=== PATIENT | female | born 1975 | race Caucasian/White ===

== ENCOUNTER 2018-04-06 08:09 | Emergency (ER) | payer BC ==
[2018-04-06 08:24] VITALS: TEMP 98
[2018-04-06] MEDS ORDERED: SODIUM CHLORIDE 0.9% 1,000 ML IV STA (08:51)
--- NOTE | 2018-04-06 09:07 | ED ---
General Adult HPI - General Chief complaint: Neuro Symptoms/Deficit Stated complaint: FACE AND RT ARM NUMBNESS Time Seen by Provider: 04/06/18 08:42 Source: patient, RN notes reviewed Mode of arrival: ambulatory Limitations: no limitations - History of Present Illness Initial comments: Patient's a 42-year-old female presenting to the emergency room today with a chief complaint of numbness to the right upper extremity right side of her face. Patient states that she woke up around 2 AM with a pins and needle type sensation in the right arm. She states it was painful. She states it lasted approximately an hour and then went away. She states she was able to go back to sleep. She states she woke up she felt fine. She went to work approximately one hour prior to arrival began feeling this numbness sensation back of the right upper extremity of the right side of her face. She states it' s not as tetanus was in the morning. She states she can feel but it is more of a packaging sales sensation when compared bilaterally. She denies any history of any neck problems. Denies ever having similar symptoms in the past. Denies any other complaints. Patient denies any recent fever, chills, shortness of breath, chest pain, back pain, abdominal pain, nausea or vomiting, headaches or visual changes, or any other complaints. - Related Data Allergies Allergy/AdvReac Type Severity Reaction Status Date / Time morphine AdvReac Nausea & Verified 04/06/18 08:24 Vomiting Review of Systems ROS Statement: Those systems with pertinent positive or pertinent negative responses have been documented in the HPI. ROS Other: All systems not noted in ROS Statement are negative. Past Medical History Past Medical History: No Reported History History of Any Multi-Drug Resistant Organisms: None Reported Past Surgical History: Ablation, Appendectomy, Tubal Ligation Additional Past Surgical History / Comment(s): uterine ablasion Past Psychological History: No Psychological Hx Reported Smoking Status: Current some day smoker Past Alcohol Use History: Rare Past Drug Use History: None Reported General Exam - General Exam Comments Initial Comments: General: The patient is awake and alert, in no distress, and does not appear acutely ill. Eye: Pupils are equal, round and reactive to light, extra-ocular movements are intact. No nystagmus. There is normal conjunctiva bilaterally. No signs of icterus. Ears, nose, mouth and throat: There are moist mucous membranes and no oral lesions. Neck: The neck is supple, there is no tenderness or JVD. Cardiovascular: There is a regular rate and rhythm. No murmur, rub or gallop is appreciated. Respiratory: Lungs are clear to auscultation, respirations are non-labored, breath sounds are equal. No wheezes, stridor, rales, or rhonchi. Musculoskeletal: Normal ROM, no tenderness. Strength 5/5. Sensation is intact bilaterally but patient feels packaging sales sensation on the right upper extremity when compared to the left. Pulses equal bilaterally 2+. Neurological: A&O x 3. CN II-XII intact, There are no obvious motor or sensory deficits. Coordination appears grossly intact. Speech is normal. Skin: Skin is warm and dry and no rashes or lesions are noted. Psychiatric: Cooperative, appropriate mood & affect, normal judgment. Limitations: no limitations Course Vital Signs 04/06/18 04/06/18 04/06/18 08:21 09:00 09:30 Temperature 98 F Pulse Rate 65 64 57 L Respiratory 18 12 12 Rate Blood Pressure 122/59 108/53 98/63 O2 Sat by Pulse 100 98 98 Oximetry 04/06/18 10:00 Temperature Pulse Rate 59 L Respiratory 10 L Rate Blood Pressure 109/64 O2 Sat by Pulse 98 Oximetry Medical Decision Making - Medical Decision Making Case discussed in detail with attending physician Dr. Burgos. Patient reexamined at this time shows no signs of distress. She is resting comfortably. Does admit to improvement of symptoms here. States anytime she feels like her face is swollen. She states there is no active swelling. Does have mild paresthesia to the right side but sensation to light touch is intact. Patient CT of the head and neck with/without contrast was reviewed showing no acute abnormalities. Patient's labs reviewed. Was discussed with patient about close follow-up for Neuro consult. Patient states she will follow-up with her family doctor. Advised return to emergency room symptoms increase or worsen. - Lab Data Result diagrams: 04/06/18 08:39 04/06/18 08:39 Lab Results 04/06/18 04/06/18 04/06/18 Range/Units 08:39 08:39 08:39 WBC 5.3 (3.8-10.6) k/uL RBC 3.74 L (3.80-5.40) m/uL Hgb 11.7 (11.4-16.0) gm/dL Hct 35.7 (34.0-46.0) % MCV 95.4 (80.0-100.0) fL MCH 31.3 (25.0-35.0) pg MCHC 32.8 (31.0-37.0) g/dL RDW 12.3 (11.5-15.5) % Plt Count 289 (150-450) k/uL Neutrophils % 48 % Lymphocytes % 32 % Monocytes % 7 % Eosinophils % 9 % Basophils % 1 % Neutrophils # 2.6 (1.3-7.7) k/uL Lymphocytes # 1.7 (1.0-4.8) k/uL Monocytes # 0.4 (0-1.0) k/uL Eosinophils # 0.5 (0-0.7) k/uL Basophils # 0.0 (0-0.2) k/uL PT (9.0-12.0) sec INR (<1.2) APTT (22.0-30.0) sec Sodium 139 (137-145) mmol/L Potassium 4.8 (3.5-5.1) mmol/L Chloride 108 H (98-107) mmol/L Carbon Dioxide 22 (22-30) mmol/L Anion Gap 9 mmol/L BUN 17 (7-17) mg/dL Creatinine 0.88 (0.52-1.04) mg/dL Est GFR (CKD-EPI)AfAm >90 (>60 ml/min/1.73 sqM) Est GFR (CKD-EPI)NonAf 82 (>60 ml/min/1.73 sqM) Glucose 69 L (74-99) mg/dL Calcium 9.4 (8.4-10.2) mg/dL Total Bilirubin 0.3 (0.2-1.3) mg/dL AST 36 (14-36) U/L ALT 20 (9-52) U/L Alkaline Phosphatase 54 (38-126) U/L Total Creatine Kinase 145 H (30-135) U/L CK-MB (CK-2) 1.2 (0.0-2.4) ng/mL CK-MB (CK-2) Rel Index 0.8 Troponin I <0.012 (0.000-0.034) ng/mL Total Protein 7.0 (6.3-8.2) g/dL Albumin 4.4 (3.5-5.0) g/dL 04/06/18 Range/Units 08:39 WBC (3.8-10.6) k/uL RBC (3.80-5.40) m/uL Hgb (11.4-16.0) gm/dL Hct (34.0-46.0) % MCV (80.0-100.0) fL MCH (25.0-35.0) pg MCHC (31.0-37.0) g/dL RDW (11.5-15.5) % Plt Count (150-450) k/uL Neutrophils % % Lymphocytes % % Monocytes % % Eosinophils % % Basophils % % Neutrophils # (1.3-7.7) k/uL Lymphocytes # (1.0-4.8) k/uL Monocytes # (0-1.0) k/uL Eosinophils # (0-0.7) k/uL Basophils # (0-0.2) k/uL PT 9.9 (9.0-12.0) sec INR 0.9 (<1.2) APTT 27.7 (22.0-30.0) sec Sodium (137-145) mmol/L Potassium (3.5-5.1) mmol/L Chloride (98-107) mmol/L Carbon Dioxide (22-30) mmol/L Anion Gap mmol/L BUN (7-17) mg/dL Creatinine (0.52-1.04) mg/dL Est GFR (CKD-EPI)AfAm (>60 ml/min/1.73 sqM) Est GFR (CKD-EPI)NonAf (>60 ml/min/1.73 sqM) Glucose (74-99) mg/dL Calcium (8.4-10.2) mg/dL Total Bilirubin (0.2-1.3) mg/dL AST (14-36) U/L ALT (9-52) U/L Alkaline Phosphatase (38-126) U/L Total Creatine Kinase (30-135) U/L CK-MB (CK-2) (0.0-2.4) ng/mL CK-MB (CK-2) Rel Index Troponin I (0.000-0.034) ng/mL Total Protein (6.3-8.2) g/dL Albumin (3.5-5.0) g/dL Disposition Clinical Impression: Paresthesia Disposition: HOME SELF-CARE Condition: Good Instructions (If sedation given, give patient instructions): Paresthesia (ED) Additional Instructions: Please follow-up with family doctor in the next 1-2 days. Please return to emergency room if the symptoms increase or worsen or for any other concerns. Is patient prescribed a controlled substance at d/c from ED?: No Referrals: Arnie Christie MD [Primary Care Provider] - 1-2 days Time of Disposition: 10:36
[2018-04-06 09:23] LABS: INR 0.9 (<1.2); Partial Thromboplastin Time 27.7 sec (22.0-30.0); Prothrombin Time 9.9 sec (9.0-12.0)
[2018-04-06 09:27] LABS: Basophils % (A) 1 %; Eosinophils # (A) 0.5 k/uL (0-0.7); Eosinophils % (A) 9 %; HCT 35.7 % (34.0-46.0); HGB 11.7 gm/dL (11.4-16.0); Lymphocytes # (A) 1.7 k/uL (1.0-4.8); Lymphocytes % (A) 32 %; MCH 31.3 pg (25.0-35.0); MCHC 32.8 g/dL (31.0-37.0); MCV 95.4 fL (80.0-100.0); Mean Platelet Volume 6.5; Monocytes # (A) 0.4 k/uL (0-1.0); Monocytes % (A) 7 %; Neutrophils # (A) 2.6 k/uL (1.3-7.7); Neutrophils % (A) 48 %; Platelet Count 289 k/uL (150-450); RBC 3.74 m/uL (3.80-5.40); RDW 12.3 % (11.5-15.5); WBC 5.3 k/uL (3.8-10.6)
[2018-04-06 09:37] LABS: ALT 20 U/L (9-52); AST 36 U/L (14-36); Albumin 4.4 g/dL (3.5-5.0); Alkaline Phosphatase 54 U/L (38-126); Anion Gap 9 mmol/L; Blood Urea Nitrogen 17 mg/dL (7-17); Calcium 9.4 mg/dL (8.4-10.2); Carbon Dioxide 22 mmol/L (22-30); Chloride 108 mmol/L (98-107); Glucose 69 mg/dL (74-99); Potassium 4.8 mmol/L (3.5-5.1); Sodium 139 mmol/L (137-145); Total Bilirubin 0.3 mg/dL (0.2-1.3)
[2018-04-06 09:45] LABS: Creatine Kinase 145 U/L (30-135)
--- NOTE | 2018-04-06 09:47 | CT ---
EXAMINATION TYPE: CT brain wo con DATE OF EXAM: 04/06/2018 COMPARISON: HISTORY: right arm and facial numbness CT DLP: [address] of the brain was performed. The ventricles, basal cisterns and sulci overlying the cerebral convexities demonstrate a normal appe arance. There is no evidence for intracranial hemorrhage or sulcal effacement. No mass effects are seen. Osseous calvarium is intact. Chronic pansinusitis. If symptoms persist consider MRI as clinically warranted. IMPRESSION: 1. No acute intracranial process is seen at this time.
[2018-04-06 09:57] LABS: Creatine Kinase MB 1.2 ng/mL (0.0-2.4); Troponin I <0.012 ng/mL (0.000-0.034)
--- NOTE | 2018-04-06 09:57 | CT ---
EXAMINATION TYPE: CT angio head neck DATE OF EXAM: 04/06/2018 COMPARISON: None HISTORY: right arm and facial numbness CT DLP: 378.1 mGycm CONTRAST: Performed with IV Contrast, patient injected with 100 mL of Isovue 370. Combination Contrast CTA cervical carotids and [place] CTA cervical carotids with 3-D recons truction Contrast CTA of the cervical carotids was performed 3-D reconstruction imaging obtained at a separate workstation. Right carotid system: No plaque is seen of the right common carotid artery. There is no significant plaque also noted at the carotid bulb and proximal ICA. No significant diameter reduction. ECA is p atent. Right vertebral artery appears unremarkable. Left carotid system: No plaque is seen of the left common carotid artery. There is no significant pl aque also noted at the carotid bulb and proximal ICA. No significant diameter reduction. ECA is pat ent. Left vertebral artery appears unremarkable. IMPRESSION: 1. No significant diameter reduction to account for the patient's symptoms. CTA [place] with 3-D reconstruction Contrast CTA of the [place] was performed 3-D reconstruction imaging obtained at a separate workstation. Vertebrobasilar system as well as intracranial portions of the internal carotid arteries and their ma rajendra tributaries are patent. I do not see evidence for sizable aneurysm or vascular malformation. Pl ease note MRI provides greater sensitivity and specificity. Visualized brain appears grossly unremar kable. IMPRESSION: 1. No significant abnormality.
[2018-04-06 10:38] VITALS: BP 106/45; PULSE 56; RESP 9
== END 2018-04-06 10:48 | disposition home or self-care (01) ==
LOC: EC 08:09
DX: R20.2 Paresthesia of skin (principal); F17.200 Nicotine dependence, unspecified, uncomplicated; Z88.5 Allergy status to narcotic agent
CPT/HCPCS: 36415; 93005; 80053; 82550; 82553; 84484; 85025; 85610; 85730; 70496; 70450; 70498; 99284; 96360; 96361; Q9967

== ENCOUNTER → 2020-01-12 | Outpatient (CLI) | payer BC ==
[2020-01-12 14:23] LABS: T4, Free (Free Thyroxine) 1.7 ng/dL (0.80-1.80)
== END | disposition home or self-care (01) ==
LOC: LABWHC1 07:21
PROVIDERS: ATTEND Internal Medicine Endocrinology, Diabetes & Metabolism
DX: E05.00 Thyrotoxicosis with diffuse goiter without thyrotoxic crisis or storm (principal)
CPT/HCPCS: 36415; 84439; 84443; 84445; 84480

== ENCOUNTER 2023-06-29 11:32 | Observation (INO) | payer BC, MEDICARE, OTHER ==
--- NOTE | 2023-06-29 12:23 | ED ---
Abdominal Pain HPI - General Chief Complaint: Abdominal Pain Stated Complaint: abd pain Time Seen by Provider: 06/29/23 11:45 Source: patient, family Mode of arrival: ambulatory Limitations: no limitations - History of Present Illness Initial Comments: 47-year-old female presents reporting to left lower quadrant abdominal pain. States that the pain has been going on since Thursday. States it is sharp in nature and radiates around to her left flank. Pain is intermittent. Denies any provocative factors. No changes in her bowel or bladder habits. Patient does not have menstrual cycle since she had a uterine ablation. No vaginal bleeding or discharge. No concern for sexually transmitted infections. She denies any fevers. Admits nausea without vomiting. No history of similar pain in the past. No other alleviating, precipitating or modifying factors - Related Data Previous Rx's Medication Instructions Recorded Acetaminophen Tab [Tylenol] 650 mg PO Q6H PRN #30 tab 06/29/23 Ibuprofen [Motrin] 600 mg PO Q6HR PRN #30 tab 06/29/23 oxyCODONE HCL [Roxicodone] 5 mg PO Q6HR PRN 3 Days #12 tab 06/29/23 Allergies Allergy/AdvReac Type Severity Reaction Status Date / Time morphine AdvReac Nausea & Verified 06/29/23 15:54 Vomiting Review of Systems ROS Statement: Those systems with pertinent positive or pertinent negative responses have been documented in the HPI. ROS Other: All systems not noted in ROS Statement are negative. Past Medical History Past Medical History: No Reported History History of Any Multi-Drug Resistant Organisms: None Reported Past Surgical History: Ablation, Appendectomy, Tubal Ligation Additional Past Surgical History / Comment(s): uterine ablasion, liposuction. Past Psychological History: No Psychological Hx Reported Smoking Status: Never smoker Past Alcohol Use History: Occasional Past Drug Use History: None Reported General Exam Limitations: no limitations General appearance: alert, in no apparent distress Head exam: Present: atraumatic, normocephalic, normal inspection Eye exam: Present: normal appearance, PERRL, EOMI. Absent: scleral icterus, conjunctival injection, periorbital swelling ENT exam: Present: normal exam, mucous membranes moist Neck exam: Present: normal inspection. Absent: tenderness, meningismus, lymphadenopathy Respiratory exam: Present: normal lung sounds bilaterally. Absent: respiratory distress, wheezes, rales, rhonchi, stridor Cardiovascular Exam: Present: regular rate, normal rhythm, normal heart sounds. Absent: systolic murmur, diastolic murmur, rubs, gallop, clicks GI/Abdominal exam: Present: soft, tenderness (Left lower quadrant pelvic pain), normal bowel sounds. Absent: distended, guarding, rebound, rigid Extremities exam: Present: normal inspection, full ROM, normal capillary refill. Absent: tenderness, pedal edema, joint swelling, calf tenderness Back exam: Present: normal inspection Neurological exam: Present: alert, oriented X3, CN II-XII intact Psychiatric exam: Present: normal affect, normal mood Skin exam: Present: warm, dry, intact, normal color. Absent: rash Course Vital Signs 06/29/23 06/29/23 06/29/23 11:33 15:09 18:25 Temperature 97.6 F Pulse Rate 62 61 65 Respiratory 18 16 16 Rate Blood Pressure 113/76 114/61 109/63 O2 Sat by Pulse 99 100 99 Oximetry Medical Decision Making - Medical Decision Making Was pt. sent in by a medical professional or institution (, PA, SHELLFISH BED WORKER, urgent care, hospital, or long term...) When possible be specific @ -No Did you speak to anyone other than the patient for history (EMS, parent, family, police, friend...)? What history was obtained from this source @ -No Did you review nursing and triage notes (agree or disagree)? Why? @ -I reviewed and agree with nursing and triage notes Were old charts reviewed (outside hosp., previous admission, EMS record, old EKG, old radiological studies, urgent care reports/EKG's, long term records)? Report findings @ -No old charts were reviewed Differential Diagnosis (chest pain, altered mental status, abdominal pain women, abdominal pain men, vaginal bleeding, weakness, fever, dyspnea, syncope, headache, dizziness, GI bleed, back pain, seizure, CVA, palpatations, mental health, musculoskeletal)? @ -Differential Abdominal Pain Women: Appendicitis, Cholecystitis, diverticulosis, ischemic bowel, pancreatitis, hepatitis, UTI, gastroenteritis, AAA, incarcerated hernia, bowel obstruction, constipation, inflammatory bowel, hepatitis, peptic ulcer disease, splenic infarction, perforated viscus, vulvitis, ovarian torsion, PID, kidney stone, placenta abruption, this is not meant to be an all-inclusive list EKG interpreted by me (3pts min.). @ -Yes and demonstrates sinus rhythm with a rate of 60. Parable 132. QRS 96. QTc of [address] segment elevations or depressions X-rays interpreted by me (1pt min.). @ -None done CT interpreted by me (1pt min.). @ -yes and demonstrates congestion of the left adnexa U/S interpreted by me (1pt. min.). @ -Left adnexa cannot be visualized What testing was considered but not performed or refused? (CT, X-rays, U/S, labs)? Why? @ -None What meds were considered but not given or refused? Why? @ -None Did you discuss the management of the patient with other professionals (professionals i.e. , PA, SHELLFISH BED WORKER, lab, RT, psych nurse, forensic social worker, ironer or presser, teacher, corporation officer, caseworker)? Give summary @ -Discussed the case with Dr. Henriquez who will evaluate the patient. Was smoking cessation discussed for >3mins.? @ -No Was critical care preformed (if so, how long)? @ -No Were there social determinants of health that impacted care today? How? (Homelessness, low income, unemployed, alcoholism, drug addiction, transportation, low edu. Level, literacy, decrease access to med. care, custodial, rehab)? @ -No Was there de-escalation of care discussed even if they declined (Discuss DNR or withdrawal of care, Hospice)? DNR status @ -No What co-morbidities impacted this encounter? (DM, HTN, Smoking, COPD, CAD, Cancer, CVA, ARF, Chemo, Hep., AIDS, mental health diagnosis, sleep apnea, m orbid obesity)? @ -None Was patient admitted / discharged? Hospital course, mention meds given and route, prescriptions, significant lab abnormalities, going to OR and other pertinent info. @ -Upon arrival patient was seen and evaluated in room 13. Thorough history and physical exam was performed. IV access was established. Patient was originally offered some pain medications and she refused. She was then agreeable to Toradol. CT was performed which demonstrates pelvic congestion. This is followed by an ultrasound which cannot visualize the left adnexa. As patient is reporting to left lower quadrant pain I cannot rule out torsion. I discussed this with Dr. Henriquez who states that she can obs the patient or take her for ex lap. Patient is agreeable to ex lap. She will be admitted to Dr. Henriquez Undiagnosed new problem with uncertain prognosis? @ -Yes Drug Therapy requiring intensive monitoring for toxicity (Heparin, Nitro, Insulin, Cardizem)? @ -No Were any procedures done? @ -No Diagnosis/symptom? @ -Acute left lower quadrant pelvic pain, possible torsion Acute, or Chronic, or Acute on Chronic? @ -Acute Uncomplicated (without systemic symptoms) or Complicated (systemic symptoms)? @ -Complicated Side effects of treatment? @ -No Exacerbation, Progression, or Severe Exacerbation? @ -No Poses a threat to life or bodily function? How? (Chest pain, [place], [place], pneumonia, PE, COPD, DKA, ARF, appy, cholecystitis, CVA, Diverticulitis, Homicidal, Suicidal, threat to staff... and all critical care pts) @ -Yes as patient has possible torsion - Lab Data Result diagrams: 06/29/23 12:20 06/29/23 12:20 Lab Results 06/29/23 06/29/23 06/29/23 Range/Units 12:20 12:20 12:20 WBC 3.6 L (3.8-10.6) k/uL RBC 3.46 L (3.80-5.40) m/uL Hgb 11.9 (11.4-16.0) gm/dL Hct 34.0 (34.0-46.0) % MCV 98.3 (80.0-100.0) fL MCH 34.4 (25.0-35.0) pg MCHC 35.0 (31.0-37.0) g/dL RDW 12.3 (11.5-15.5) % Plt Count 187 (150-450) k/uL MPV 8.5 Neutrophils % 44 % Lymphocytes % 36 % Monocytes % 10 % Eosinophils % 7 % Basophils % 1 % Neutrophils # 1.6 (1.3-7.7) k/uL Lymphocytes # 1.3 (1.0-4.8) k/uL Monocytes # 0.4 (0-1.0) k/uL Eosinophils # 0.2 (0-0.7) k/uL Basophils # 0.0 (0-0.2) k/uL Sodium 138 (137-145) mmol/L Potassium 4.1 (3.5-5.1) mmol/L Chloride 108 H (98-107) mmol/L Carbon Dioxide 27 (22-30) mmol/L Anion Gap 3 mmol/L BUN 9 (7-17) mg/dL Creatinine 0.68 (0.52-1.04) mg/dL Est GFR (CKD-EPI)AfAm >90 (>60 ml/min/1.73 sqM) Est GFR (CKD-EPI)NonAf >90 (>60 ml/min/1.73 sqM) Glucose 85 (74-99) mg/dL Calcium 8.8 (8.4-10.2) mg/dL Total Bilirubin 0.3 (0.2-1.3) mg/dL AST 26 (14-36) U/L ALT 14 (4-34) U/L Alkaline Phosphatase 45 (38-126) U/L Troponin I <0.012 (0.000-0.034) ng/mL Total Protein 6.1 L (6.3-8.2) g/dL Albumin 3.8 (3.5-5.0) g/dL Lipase 83 (23-300) U/L Urine Color Urine Appearance (Clear) Urine pH (5.0-8.0) Ur Specific [place] (1.001-1.035) Urine Protein (Negative) Urine Glucose (UA) (Negative) Urine Ketones (Negative) Urine Blood (Negative) Urine Nitrite (Negative) Urine Bilirubin (Negative) Urine Urobilinogen (<2.0) mg/dL Ur Leukocyte Esterase (Negative) Urine WBC (0-5) /hpf Ur Squamous Epith Cells (0-4) /hpf Urine Mucus (None) /hpf 06/29/23 Range/Units 12:27 WBC (3.8-10.6) k/uL RBC (3.80-5.40) m/uL Hgb (11.4-16.0) gm/dL Hct (34.0-46.0) % MCV (80.0-100.0) fL MCH (25.0-35.0) pg MCHC (31.0-37.0) g/dL RDW (11.5-15.5) % Plt Count (150-450) k/uL MPV Neutrophils % % Lymphocytes % % Monocytes % % Eosinophils % % Basophils % % Neutrophils # (1.3-7.7) k/uL Lymphocytes # (1.0-4.8) k/uL Monocytes # (0-1.0) k/uL Eosinophils # (0-0.7) k/uL Basophils # (0-0.2) k/uL Sodium (137-145) mmol/L Potassium (3.5-5.1) mmol/L Chloride (98-107) mmol/L Carbon Dioxide (22-30) mmol/L Anion Gap mmol/L BUN (7-17) mg/dL Creatinine (0.52-1.04) mg/dL Est GFR (CKD-EPI)AfAm (>60 ml/min/1.73 sqM) Est GFR (CKD-EPI)NonAf (>60 ml/min/1.73 sqM) Glucose (74-99) mg/dL Calcium (8.4-10.2) mg/dL Total Bilirubin (0.2-1.3) mg/dL AST (14-36) U/L ALT (4-34) U/L Alkaline Phosphatase (38-126) U/L Troponin I (0.000-0.034) ng/mL Total Protein (6.3-8.2) g/dL Albumin (3.5-5.0) g/dL Lipase (23-300) U/L Urine Color Light Yellow Urine Appearance Clear (Clear) Urine pH 6.0 (5.0-8.0) Ur Specific [place] 1.019 (1.001-1.035) Urine Protein Negative (Negative) Urine Glucose (UA) Negative (Negative) Urine Ketones Negative (Negative) Urine Blood Negative (Negative) Urine Nitrite Negative (Negative) Urine Bilirubin Negative (Negative) Urine Urobilinogen <2.0 (<2.0) mg/dL Ur Leukocyte Esterase Small H (Negative) Urine WBC 18 H (0-5) /hpf Ur Squamous Epith Cells 7 H (0-4) /hpf Urine Mucus Occasional H (None) /hpf Disposition Clinical Impression: Pelvic pain Disposition: ADMITTED IP TO THIS [facility] Condition: Stable Is patient prescribed a controlled substance at d/c from ED?: No Time of Disposition: 17:02 Decision to Admit Reason: Admit from EC Decision Date: 06/29/23 Decision Time: 17:03
[2023-06-29 12:35] LABS: Basophils % (A) 1 %; Eosinophils # (A) 0.2 k/uL (0-0.7); Eosinophils % (A) 7 %; HGB 11.9 gm/dL (11.4-16.0); Lymphocytes # (A) 1.3 k/uL (1.0-4.8); Lymphocytes % (A) 36 %; MCH 34.4 pg (25.0-35.0); MCV 98.3 fL (80.0-100.0); Mean Platelet Volume 8.5; Monocytes # (A) 0.4 k/uL (0-1.0); Monocytes % (A) 10 %; Neutrophils # (A) 1.6 k/uL (1.3-7.7); Neutrophils % (A) 44 %; Platelet Count 187 k/uL (150-450); RBC 3.46 m/uL (3.80-5.40); RDW 12.3 % (11.5-15.5); WBC 3.6 k/uL (3.8-10.6)
[2023-06-29 12:41] LABS: Appearance,Urine Clear (Clear); Bilirubin,Urine Negative (Negative); Blood,Urine Negative (Negative); Color,Urine Light Yellow; Glucose,Urine (UA) Negative (Negative); Ketones,Urine Negative (Negative); Leukocyte Esterase,Urine Small (Negative); Mucus,Urine Occasional /hpf; Nitrite,Urine Negative (Negative); Protein,Urine Negative (Negative); Specific Gravity,Urine 1.019 (1.001-1.035); Squamous Epithelial Cell,Urine 7 /hpf (0-4); Urobilinogen,Urine <2.0 mg/dL (<2.0); WBC,Urine 18 /hpf (0-5)
[2023-06-29 12:45] LABS: ALT 14 U/L (4-34); AST 26 U/L (14-36); African American GFR (CKD) >90 (>60 ml/min/1.73 sqM); Albumin 3.8 g/dL (3.5-5.0); Alkaline Phosphatase 45 U/L (38-126); Anion Gap 3 mmol/L; Blood Urea Nitrogen 9 mg/dL (7-17); Calcium 8.8 mg/dL (8.4-10.2); Carbon Dioxide 27 mmol/L (22-30); Chloride 108 mmol/L (98-107); Glucose 85 mg/dL (74-99); Lipase 83 U/L (23-300); Non-African American GFR(CKD) >90 (>60 ml/min/1.73 sqM); Potassium 4.1 mmol/L (3.5-5.1); Sodium 138 mmol/L (137-145); Total Bilirubin 0.3 mg/dL (0.2-1.3); Total Protein 6.1 g/dL (6.3-8.2)
--- NOTE | 2023-06-29 14:06 | CT ---
EXAMINATION TYPE: CT abdomen pelvis w con CT DLP: 683.4 mGycm, Automated exposure control for dose reduction was used. DATE OF EXAM: 06/29/2023 1:51 PM COMPARISON: None. CLINICAL INDICATION:Female, 47 years old with history of abd pain, left lower quadrant; Left sided to mid abdominal pain. TECHNIQUE: Axial CT abdomen pelvis w con;Sagittal and coronal reformats were created on a separate w orkstation. Contrast used:100ml mL of Isovue 300 with IV Contrast, (none if empty) Oral contrast used: without Oral Contrast (none if empty) FINDINGS: LOWER CHEST: Unremarkable ABDOMEN LIVER: Unremarkable GALLBLADDER AND BILE DUCTS: Unremarkable. PANCREAS: Unremarkable. SPLEEN: Unremarkable. ADRENAL GLANDS: Unremarkable. KIDNEYS AND URETERS: No evidence of hydronephrosis or renal calculus. The ureters are unremarkable. PELVIS BLADDER: Unremarkable REPRODUCTIVE: Hazy margins. Questionable left adnexal fluid or follicle. Pelvic ultrasound follow-up recommended. ABDOMEN & PELVIS STOMACH AND BOWEL: Normal caliber small bowel No evidence of bowel obstruction. PERITONEUM/RETROPERITONEUM: No evidence of pneumoperitoneum or free fluid. VASCULATURE: No evidence of aortic aneurysm. MUSCULOSKELETAL: No acute osseous abnormalities LYMPH NODES: No gross evidence for lymphadenopathy. SOFT TISSUE/ABDOMINAL WALL: Unremarkable IMPRESSION: 1. Hazy margins regarding reproductive organs. Questionable left adnexal fluid or follicle. Pelvic u ltrasound follow-up recommended. 2. Moderate fecal load throughout the colon.
[2023-06-29] MEDS: KETOROLAC 15 MG/ML 1 ML VIAL IVP STA (15:06)
[2023-06-29 15:12] VITALS: RESP 16
--- NOTE | 2023-06-29 16:37 | US ---
EXAMINATION TYPE: US transvag DATE OF EXAM: 06/29/2023 COMPARISON: NONE CLINICAL INDICATION: Female, 47 years old with history of left sided pelvic pain; left sided pelvic p ain x years, worse now TECHNIQUE: Transvaginal (TV). Transvaginal sonographic images were medically necessary to better as sess the following anatomy: Ovaries Date of LMP: 25 years ago Hx ablation EXAM MEASUREMENTS: Uterus: 8.0x5.0x3.3 cm Endometrial Stripe: 0.7 cm Right Ovary: 1.7x1.0x1.6 cm Left Ovary: obscured by bowel 1. Uterus: Anteverted several fibroids, largest measures 1.9x1.7x2.4cm at the left fundal region 2. Endometrium: wnl 3. Right Ovary: wnl 4. Left Ovary: Obscured by overlying bowel gas Spectral, color and waveform doppler imaging shows good arterial and venous flow within the right o vary; there is no evidence for ovarian torsion. 5. Bilateral Adnexa: Obscured by overlying bowel gas 6. Posterior cul-de-sac: wnl the left adnexa has several prominent vessels measuring up to 8mm ?pelvic congestion syndrome? exam limited by bowel IMPRESSION: 1. Heterogeneous uterus consistent with multiple fibroids the largest of which is 2.4 cm and the left fundus. 2. Limited evaluation of the left adnexa due to bowel gas. 3. Normal right ovary without ovarian mass or torsion. 4. No fluid within the cul-de-sac. 5. Normal endometrium
[2023-06-29] MEDS ORDERED: MORPHINE SULFATE 4 MG/ML SYRINGE IV PRN (17:03)
[2023-06-29] MEDS ORDERED: NALOXONE 0.4 MG/ML 1 ML VIAL IV PRN (17:03)
--- NOTE | 2023-06-29 17:59 | P.HPOB ---
History of Present Illness H&P Date: 06/29/23 Chief Complaint: Left lower quadrant pain Ms. Logan is a 47 year old who presents to the ER with a 4-day history of worsening, colicky left lower quadrant pain. The pain has been intermittent in nature, but has been more constant and worsening in severity today. Toradol in the ER did not touch the pain. She also had emesis and an episode of subjective fever last night. The patient has had a decreased appetite due to the pain. The patient denies diarrhea, constipation, hematuria, dysuria, and urinary frequency. The patient has never had pain like this before. Labwork in the ER was essentially unremarkable. Urinalysis was contaminated but not suspicious for cystitis or pyelonephritis. CT Abdomen showed "hazy" and illdefined gynecologic organs with possible left adnexal fluid or follice. Pelvic US was unable to visualize the left ovary or colorflow to the left ovary due to overlying bowel gas. There is increased vascularity in the left lower quadrant, possible pelvic congestion. All she has had to eat today were a few sour patch kids 2-3 hours ago. She has otherwise only had a few sips of water. Gynecologic history: The patient has an endometrial ablation 24 years ago and has not had a period since. She has a tubal ligation for contraception. She has a history of 3 full-term vaginal deliveries. Surgical history: appendectomy, abdominoplasty, tubal ligation, endometrial ablation Social history: Social drinking, otherwise negative Medications: None Allergies: Morphine (vomiting) Past Medical History Past Medical History: No Reported History History of Any Multi-Drug Resistant Organisms: None Reported Past Surgical History: Ablation, Appendectomy, Tubal Ligation Additional Past Surgical History / Comment(s): uterine ablasion, liposuction. Past Psychological History: No Psychological Hx Reported Smoking Status: Never smoker Past Alcohol Use History: Occasional Past Drug Use History: None Reported Medications and Allergies Home Medications Medication Instructions Recorded Confirmed Type No Known Home Medications 06/29/23 06/29/23 History Allergies Allergy/AdvReac Type Severity Reaction Status Date / Time morphine AdvReac Nausea & Verified 06/29/23 15:54 Vomiting Exam Vital Signs Temp Pulse Resp BP Pulse Ox 06/29/23 15:09 61 16 114/61 100 06/29/23 11:33 97.6 F 62 18 113/76 99 Intake and Output 06/29/23 06/29/23 06/29/23 06:59 14:59 22:59 Other: Weight 69.853 kg Focused physical exam is performed. This is a woman in mild distress, uncomfortable appearing. Breathing is non-labored. Abdomen is tender to pa lpation with guarding in the left lower quadrant. No rebound tenderness. Extremities are non-tender and non-edematous. Results Result Diagrams: 06/29/23 12:20 06/29/23 12:20 Abnormal Lab Results - Last 24 Hours (Table) 06/29/23 06/29/23 06/29/23 Range/Units 12:20 12:20 12:27 WBC 3.6 L (3.8-10.6) k/uL RBC 3.46 L (3.80-5.40) m/uL Chloride 108 H (98-107) mmol/L Total Protein 6.1 L (6.3-8.2) g/dL Ur Leukocyte Esterase Small H (Negative) Urine WBC 18 H (0-5) /hpf Ur Squamous Epith Cells 7 H (0-4) /hpf Urine Mucus Occasional H (None) /hpf Assessment and Plan Assessment: 47 year old with suspected left ovarian torsion Plan: Admit, NPO, plan for emergent diagnostic laparoscopy with possible left salpingo-ophorectomy. Risks, benefits, and alternatives to surgery were discussed with the patient including risk of bleeding, infection, and damage to surrounding structures. All questions answered. Time with Patient: Greater than 30 (35 minutes)
[2023-06-29] MEDS ORDERED: LIDOCAINE 1% (10MG/ML) FOR IV START INTRADERMA PRN (18:35)
[2023-06-29] MEDS ORDERED: GLYCOPYRROLATE 0.2 MG/ML 2 ML VIAL ONE (18:41)
[2023-06-29] MEDS ORDERED: MIDAZOLAM 2 MG/2 ML VIAL ONE (18:41)
[2023-06-29] MEDS ORDERED: ROCURONIUM 10 MG/ML (5 ML VIAL) IV ONE (18:41)
[2023-06-29] MEDS ORDERED: NEOSTIGMINE 1 MG/ML 10 ML VIAL ONE (18:41)
[2023-06-29] MEDS ORDERED: SUCCINYLCHOLINE CHLORIDE 200 MG/10 ML VIAL IV ONE (18:41)
[2023-06-29] MEDS ORDERED: fentaNYL (PF) 50 MCG/ML 2 ML AMP ONE (18:41)
[2023-06-29] MEDS ORDERED: PROPOFOL 10 MG/ML 20 ML VIAL IV ONE (18:41)
[2023-06-29] MEDS ORDERED: LIDOCAINE 1% INJ 10MG/ML (20 ML MDV) ONE (18:41)
[2023-06-29] MEDS: BUPIVACAINE (PF) 0.25% 30 ML VIAL SQ ONE (18:43)
[2023-06-29] MEDS: LACTATED RINGERS 1,000 ML IV ONE (18:44)
[2023-06-29] MEDS: DEXAMETHASONE SOD PHOSPHATE 4 MG/ML 1 ML VIAL IVP ONE (18:45)
[2023-06-29] MEDS: ONDANSETRON 4 MG/2 ML VIAL IVP ONE ×2 (18:45→21:22)
[2023-06-29] MEDS: SODIUM CHLORIDE 0.9% 50 ML with ceFAZolin 2,000 MG IV ONE (18:46)
[2023-06-29 20:25] VITALS: TEMP 97.2
--- NOTE | 2023-06-29 20:29 | P.OP ---
Date of Procedure: 06/29/23 Preoperative Diagnosis: 1. Left Lower Quadrant Pain 2. Suspected Left Ovarian Torsion Postoperative Diagnosis: 1. Left Lower Quadrant Pain Procedure(s) Performed: Diagnostic Laparoscopy Implants: None Anesthesia: FLOR Surgeon: Heaven Mendenhall Estimated Blood Loss (ml): 5 IV fluids (ml): 600 Urine output (ml): 200 Pathology: none sent Condition: stable Disposition: same day Indications for Procedure: Ms. Logan is a 47 year old who presented to the ER with a 4-day history of worsening LLQ pain. CT showed left adnexal vessel congestion but visualization of the ovary was unclear. The pelvic US was also unable to visualize the left adnexa due to overlying bowel gas. On exam, the patient was tender to palpation of the LLQ and had guarding. The risks, benefits, and alternatives to diagnostic laparoscopic possible LSO were discussed with the patient including risk of bleeding, infection, damage to surrounding structures, and laparotomy. The patient understands these risks and desires to proceed with surgery. Operative Findings: Unremarkable anteverted uterus sounding to 9 cm. Bilatearal ovaries and adnexa are unremarkable. No ovarian torsion. Description of Procedure: Patient was taken to the OR with IV fluid running and pneumatic compression stockings on both legs. General anesthesia was obtained without difficulty. The patient was placed in the dorsal lithotomy position with Nic-type stirrups with knees bent at 30 degree angles. Examination under anesthesia revealed a normal-sized, anteverted uterus. The patient as prepared and draped. The bladder was emptied. A speculum was placed into the vagina. The anterior lip of the cervix was grasped with a single-toothed tenaculum. A uterine manipulator was introduced. A horizontal skin incision was made at the umbilical fold. The periumbilical skin was manually elevated. The Veress needle was introduced into the peritoneal cavity at a straight angle without difficulty. A saline drop test was performed to validate intraperitoneal placement. The pneumoperitoneum was established with CO2 gas to a pressure of 15mmHg. A 5mm trocar was inserted into the abdomen under direct laparoscopic visualization. Intraabdominal survey revealed lack of any visceral or vascular injury. The pelvic and abdominal anatomy was noted as above. Two additional laparoscopic assit ports were placed in the left lower quadrants. After careful inspection of bilateral fallopian tubes and ovaries, ovarian torsion is ruled out and the findings are noted as above. Excellent hemostasis was noted at the end of the case. The patient tolerated the procedure well. All instruments were removed from the abdomen and vagina, and all counts were correct times two. The patient was taken to the recovery room in stable condition.the recovery room in stable condition.
[2023-06-29 21:05] VITALS: BP 108/76; PULSE 56
[2023-06-29] MEDS: SODIUM CHLORIDE 0.9% 1,000 ML IV SCH (21:21)
[2023-06-29] MEDS: LACTATED RINGERS 1,000 ML IV SCH (21:22)
[2023-06-29] MEDS ORDERED: KETOROLAC 15 MG/ML 1 ML VIAL IVP PRN (21:58)
[2023-06-29] MEDS: DEXAMETHASONE SOD PHOSPHATE 4 MG/ML 1 ML VIAL IV ONE (22:48)
[2023-06-29] MEDS: ACETAMINOPHEN IV (For NPO) 1,000 MG in EMPTY BAG 1 BAG IVPB ONE (22:49)
[2023-06-30] MEDS ORDERED: ACETAMINOPHEN TAB 500 MG TAB PO PRN
[2023-06-30] MEDS ORDERED: HYDROmorphone 0.5 MG/0.5 ML SYRINGE IVP PRN (07:00)
[2023-06-30] MEDS ORDERED: MIDAZOLAM 2 MG/2 ML VIAL IV PRN (07:00)
== END 2023-06-29 23:57 | disposition home or self-care (01) ==
LOC: EC 11:32 → 4SSUR 17:03
PROVIDERS: ADMIT Obstetrics & Gynecology; ATTEND Obstetrics & Gynecology
DX: R10.32 Left lower quadrant pain (principal); N85.4 Malposition of uterus; Z88.5 Allergy status to narcotic agent
CPT/HCPCS: 96365; 96375; 99285; 36415; 93005; 80053; 83690; 84484; 85025; 81001; 76830; 74177; 49320; G0378; J1100; J2405; J0690; J0131; J1885; Q9967; J0665

== ENCOUNTER 2023-08-04 13:21 | Observation (INO) | payer BC, OTHER ==
--- NOTE | 2023-08-04 13:45 | ED ---
General Adult HPI - General Chief complaint: Abdominal Pain Stated complaint: Abd pain Time Seen by Provider: 08/04/23 13:34 Source: patient, RN notes reviewed Mode of arrival: ambulatory Limitations: no limitations - History of Present Illness Initial comments: Patient is a 47-year-old female present to the emergency department with concerns with abdominal discomfort. Patient was in the emergency department and went for laparoscopic surgery for feared ovarian torsion 3 weeks ago. Patient has had continued discomfort since that time. Patient states she was diagnosed with chronic pain from previous tubal ligation. Plan is to have hysterectomy h owever patient cannot get an for a few weeks. Patient is having continued discomfort with occasional nausea and vomiting. No fever. - Related Data Allergies Allergy/AdvReac Type Severity Reaction Status Date / Time morphine AdvReac Nausea & Verified 08/04/23 18:48 Vomiting Review of Systems ROS Statement: Those systems with pertinent positive or pertinent negative responses have been documented in the HPI. ROS Other: All systems not noted in ROS Statement are negative. Constitutional: Denies: fever Eyes: Denies: eye pain ENT: Denies: ear pain Respiratory: Denies: cough Cardiovascular: Denies: chest pain Endocrine: Denies: fatigue Gastrointestinal: Reports: as per HPI, abdominal pain, nausea, vomiting Genitourinary: Denies: dysuria Musculoskeletal: Denies: back pain Past Medical History Past Medical History: No Reported History History of Any Multi-Drug Resistant Organisms: None Reported Past Surgical History: Ablation, Appendectomy, Tubal Ligation Additional Past Surgical History / Comment(s): uterine ablasion, liposuction. Past Psychological History: No Psychological Hx Reported Smoking Status: Never smoker Past Alcohol Use History: Occasional Past Drug Use History: None Reported General Exam Limitations: no limitations General appearance: alert, in no apparent distress Head exam: Present: normocephalic Eye exam: Present: normal appearance Neck exam: Present: normal inspection Respiratory exam: Present: normal lung sounds bilaterally Cardiovascular Exam: Present: regular rate, normal rhythm GI/Abdominal exam: Present: soft, tenderness (Mild diffuse tenderness to palpation). Absent: distended, guarding, rebound, rigid, pulsatile mass Extremities exam: Present: normal inspection. Absent: pedal edema, calf tenderness Neurological exam: Present: alert Psychiatric exam: Present: normal affect, normal mood Skin exam: Present: normal color Course Vital Signs 08/04/23 08/04/23 13:29 17:26 Temperature 98 F Pulse Rate 78 53 L Respiratory 18 14 Rate Blood Pressure 120/78 100/51 O2 Sat by Pulse 98 98 Oximetry Medical Decision Making - Medical Decision Making Was pt. sent in by a medical professional or institution ([facility], [facility], urgent care, hospital, or care home...) When possible be specific @ -No Did you speak to anyone other than the patient for history (EMS, parent, family, police, friend...)? What history was obtained from this source @ -No Did you review nursing and triage notes (agree or disagree)? Why? @ -I reviewed and agree with nursing and triage notes Were old charts reviewed (outside hosp., previous admission, EMS record, old EKG, old radiological studies, urgent care reports/EKG's, care home records)? Report findings @ -Previous CT scan reviewed Differential Diagnosis (chest pain, altered mental status, abdominal pain women, abdominal pain men, vaginal bleeding, weakness, fever, dyspnea, syncope, headache, dizziness, GI bleed, back pain, seizure, CVA, palpatations, mental health, musculoskeletal)? @ -Differential Abdominal Pain Women: Appendicitis, Cholecystitis, diverticulosis, ischemic bowel, pancreatitis, hepatitis, UTI, gastroenteritis, AAA, incarcerated hernia, bowel obstruction, constipation, inflammatory bowel, hepatitis, peptic ulcer disease, splenic infarction, perforated viscus, vulvitis, ovarian torsion, PID, kidney stone, placenta abruption, this is not meant to be an all-inclusive list EKG interpreted by me (3pts min.). @ -As above X-rays interpreted by me (1pt min.). @ -None done CT interpreted by me (1pt min.). @ -CT scan without acute abnormality. U/S interpreted by me (1pt. min.). @ -None done What testing was considered but not performed or refused? (CT, X-rays, U/S, labs)? Why? @ -None What meds were considered but not given or refused? Why? @ -None Did you discuss the management of the patient with other professionals (professionals i.e. [facility], [facility], lab, RT, psych nurse, social economist, diet assistant, teacher, retail loan officer, pillowcase turner)? Give summary @ -Case was discussed with Dr. grimaldo who did not feel patient necessitated admission however if she wanted it for pain control she is agreeable to this. Was smoking cessation discussed for >3mins.? @ -No Was critical care preformed (if so, how long)? @ -No Were there social determinants of health that impacted care today? How? (Ho melessness, low income, unemployed, alcoholism, drug addiction, transportation, low edu. Level, literacy, decrease access to med. care, halfway, rehab)? @ -No Was there de-escalation of care discussed even if they declined (Discuss DNR or withdrawal of care, Hospice)? DNR status @ -No What co-morbidities impacted this encounter? (DM, HTN, Smoking, COPD, CAD, Cancer, CVA, ARF, Chemo, Hep., AIDS, mental health diagnosis, sleep apnea, morbid obesity)? @ -None Was patient admitted / discharged? Hospital course, mention meds given and route, prescriptions, significant lab abnormalities, going to OR and other pertinent info. @ -Patient reevaluated several times. Patient still having discomfort and is not comfortable discharge home. Patient will be held for observation and pain control. Admission orders written Undiagnosed new problem with uncertain prognosis? @ -No Drug Therapy requiring intensive monitoring for toxicity (Heparin, Nitro, Insulin, Cardizem)? @ -No Were any procedures done? @ -No Diagnosis/symptom? @ -Abdominal pain Acute, or Chronic, or Acute on Chronic? @ -Acute on chronic Uncomplicated (without systemic symptoms) or Complicated (systemic symptoms)? @ -Default Side effects of treatment? @ -No Exacerbation, Progression, or Severe Exacerbation? @ -No Poses a threat to life or bodily function? How? (Chest pain, [place], [place], pneumonia, PE, COPD, DKA, ARF, appy, cholecystitis, CVA, Diverticulitis, Homicidal, Suicidal, threat to staff... and all critical care pts) @ -No - Lab Data Result diagrams: 08/04/23 14:03 08/04/23 14:03 Lab Results 08/04/23 08/04/23 08/04/23 Range/Units 14:03 14:03 14:03 WBC 5.0 (3.8-10.6) k/uL RBC 3.90 (3.80-5.40) m/uL Hgb 12.6 (11.4-16.0) gm/dL Hct 38.1 (34.0-46.0) % MCV 97.8 (80.0-100.0) fL MCH 32.3 (25.0-35.0) pg MCHC 33.0 (31.0-37.0) g/dL RDW 12.0 (11.5-15.5) % Plt Count 237 (150-450) k/uL MPV 8.2 Neutrophils % 68 % Lymphocytes % 19 % Monocytes % 7 % Eosinophils % 4 % Basophils % 1 % Neutrophils # 3.4 (1.3-7.7) k/uL Lymphocytes # 1.0 (1.0-4.8) k/uL Monocytes # 0.3 (0-1.0) k/uL Eosinophils # 0.2 (0-0.7) k/uL Basophils # 0.0 (0-0.2) k/uL PT 10.4 (10.0-12.5) sec INR 0.9 (<1.2) APTT 24.7 (22.0-30.0) sec Sodium 138 (137-145) mmol/L Potassium 4.1 (3.5-5.1) mmol/L Chloride 107 (98-107) mmol/L Carbon Dioxide 25 (22-30) mmol/L Anion Gap 6 mmol/L BUN 16 (7-17) mg/dL Creatinine 0.67 (0.52-1.04) mg/dL Est GFR (CKD-EPI)AfAm >90 (>60 ml/min/1.73 sqM) Est GFR (CKD-EPI)NonAf >90 (>60 ml/min/1.73 sqM) Glucose 74 (74-99) mg/dL Calcium 9.4 (8.4-10.2) mg/dL Total Bilirubin 0.3 (0.2-1.3) mg/dL AST 27 (14-36) U/L ALT 13 (4-34) U/L Alkaline Phosphatase 50 (38-126) U/L Total Protein 6.8 (6.3-8.2) g/dL Albumin 4.5 (3.5-5.0) g/dL Amylase 62 (30-110) U/L Lipase 93 (23-300) U/L Disposition Clinical Impression: Abdominal pain Disposition: ADMITTED IP TO THIS [facility] Is patient prescribed a controlled substance at d/c from ED?: No Referrals: Roz Ribera MD [Primary Care Provider] - 1-2 days Time of Disposition: 18:53
[2023-08-04] MEDS: SODIUM CHLORIDE 0.9% 1,000 ML IV STA (14:05)
[2023-08-04] MEDS: HYDROmorphone 1 MG/ML 1 ML SYRINGE IVP STA ×2 (14:06→17:22)
[2023-08-04] MEDS: ONDANSETRON 4 MG/2 ML VIAL IVP STA (14:06)
[2023-08-04] MEDS: FAMOTIDINE 20 MG/2 ML VIAL IV STA (14:06)
[2023-08-04 14:27] LABS: Basophils % (A) 1 %; Eosinophils # (A) 0.2 k/uL (0-0.7); Eosinophils % (A) 4 %; HCT 38.1 % (34.0-46.0); HGB 12.6 gm/dL (11.4-16.0); Lymphocytes % (A) 19 %; MCH 32.3 pg (25.0-35.0); MCV 97.8 fL (80.0-100.0); Mean Platelet Volume 8.2; Monocytes # (A) 0.3 k/uL (0-1.0); Monocytes % (A) 7 %; Neutrophils # (A) 3.4 k/uL (1.3-7.7); Neutrophils % (A) 68 %; Platelet Count 237 k/uL (150-450)
[2023-08-04 14:36] LABS: INR 0.9 (<1.2); Partial Thromboplastin Time 24.7 sec (22.0-30.0); Prothrombin Time 10.4 sec (10.0-12.5)
[2023-08-04 15:28] LABS: ALT 13 U/L (4-34); AST 27 U/L (14-36); African American GFR (CKD) >90 (>60 ml/min/1.73 sqM); Albumin 4.5 g/dL (3.5-5.0); Alkaline Phosphatase 50 U/L (38-126); Amylase 62 U/L (30-110); Anion Gap 6 mmol/L; Blood Urea Nitrogen 16 mg/dL (7-17); Calcium 9.4 mg/dL (8.4-10.2); Carbon Dioxide 25 mmol/L (22-30); Chloride 107 mmol/L (98-107); Glucose 74 mg/dL (74-99); Lipase 93 U/L (23-300); Non-African American GFR(CKD) >90 (>60 ml/min/1.73 sqM); Potassium 4.1 mmol/L (3.5-5.1); Sodium 138 mmol/L (137-145); Total Bilirubin 0.3 mg/dL (0.2-1.3); Total Protein 6.8 g/dL (6.3-8.2)
--- NOTE | 2023-08-04 15:52 | CT ---
EXAMINATION TYPE: CT abdomen pelvis w con DATE OF EXAM: 08/04/2023 COMPARISON: 06/29/2023 INDICATION: abd pain nausea, appetite changes, pt was in ER 3 weeks ago and had sx for suspected tors ion but was negative for torsion. pt was dx with tubal ligation and ablation syndrome and is schedule d to have a hysterectomy on 09/30 but pain in not tolerable for daily routine DLP: 826.7 mGycm, Automated exposure control for dose reduction was used. CONTRAST: 100ml mL of Isovue 300. Study performed without Oral Contrast TECHNIQUE: Axial images were obtained from above the diaphragm to the pubic rami in the axial plane a t 5 mm thick sections. Reconstructed images are reviewed on the computer in the coronal plane. FINDINGS: Limited CT sections are obtained the lung bases. The lung bases are clear. CT ABDOMEN: Liver: Normal Spleen: Normal Pancreas: Normal Adrenal glands: The adrenal glands are normal. Gallbladder: Normal Kidneys: No masses are evident. No hydronephrosis is present. No cysts are present. Delayed images were obtained through the kidneys, which remain unremarkable. Aorta: Normal Inferior vena cava: Normal. CT PELVIS: Loops of bowel within the abdomen and pelvis are normal. Fecal debris is within the colon. Studies without oral contrast limiting bowel evaluation. Appendix: Normal as visualized. Urinary bladder: Distended Genitourinary structures: There is a hyperdense area within the vaginal canal. Series 202 image 53. Osseous structures: No suspicious lytic or sclerotic lesions. IMPRESSION: 1. Hyperdense lesion within the left cervical canal of uncertain etiology. Additional evaluation wou ld be of benefit, MRI could be performed. 2. No additional abnormalities to account for pain and discomfort
[2023-08-04] MEDS ORDERED: HYDROmorphone 0.5 MG/0.5 ML SYRINGE IVP PRN (18:53)
[2023-08-04] MEDS ORDERED: NALOXONE 0.4 MG/ML 1 ML VIAL IV PRN (18:53)
[2023-08-04] MEDS ORDERED: ACETAMINOPHEN TAB 325 MG TAB PO PRN (18:53)
[2023-08-04] MEDS: SODIUM CHLORIDE 0.9% 1,000 ML IV SCH (21:04)
[2023-08-04] MEDS: HYDROmorphone 1 MG/ML 1 ML SYRINGE IVP PRN (21:11)
[2023-08-04] MEDS: ONDANSETRON 4 MG/2 ML VIAL IVP PRN (21:12)
--- NOTE | 2023-08-05 08:35 | P.HPOB ---
History of Present Illness H&P Date: 08/05/23 Chief Complaint: Pelvic pain Ms. 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 She is scheduled for robotic hysterectomy 09/30. The pain became acutely worse last night and was associated with nausea which drove her to be seen in the emergnecy room for pain control. She was ultimately admitted overnight for continued pain control. Past Medical History Past Medical History: No Reported History History of Any Multi-Drug Resistant Organisms: None Reported Past Surgical History: Ablation, Appendectomy, Tubal Ligation Additional Past Surgical History / Comment(s): uterine ablasion, liposuction, patient reports having ongoing pain for 3 weeks and is scheduled 10/01/23 for hysterectomy. Past Anesthesia/Blood Transfusion Reactions: No Reported Reaction Past Psychological History: No Psychological Hx Reported Smoking Status: Never smoker Past Alcohol Use History: Occasional Past Drug Use History: None Reported Medications and Allergies Home Medications Medication Instructions Recorded Confirmed Type Buprenorphine HCl/Naloxone HCl 1 film SL TID PRN 08/04/23 08/04/23 History [Suboxone 8 mg-2 mg Sl Film] Dextroamphetamine/Amphetamine 20 mg PO BID 08/04/23 08/04/23 History [Adderall] Folic Acid 1 mg PO DAILY 08/04/23 08/04/23 History Allergies Allergy/AdvReac Type Severity Reaction Status Date / Time morphine AdvReac Nausea & Verified 08/04/23 18:48 Vomiting Exam Vital Signs Temp Pulse Pulse Resp BP BP Pulse Ox 08/05/23 02:00 97.7 F 60 16 91/54 98 08/04/23 19:36 68 16 99/50 100 08/04/23 19:26 98.4 F 64 16 115/61 100 08/04/23 17:26 53 L 14 100/51 98 08/04/23 13:29 98 F 78 18 120/78 98 Intake and Output 08/04/23 08/05/23 08/05/23 22:59 06:59 14:59 Other: # Voids 1 0 Weight 67.132 kg Focused physical exam is performed. The patient is pleasant and conversing normally. Breathing is non-labored. Abdomen is soft, non-tender to palpation. Extremities are non-tender and non-edematous. Results Result Diagrams: 08/04/23 14:03 08/04/23 14:03 Assessment and Plan Assessment: 47 year old admitted for pain control overnight for acute on chronic pelvic pain in the context of tubal ligation ablation syndrome Plan: Patient on IV dilaudid overnight for pain control. Will transition today to PO medications with tylenol, motrin, and gabapentin. Will reevaluate this evening for discharge home.
[2023-08-05] MEDS: GABAPENTIN 300 MG CAP PO SCH (09:06)
[2023-08-05] MEDS: IBUPROFEN 600 MG TAB PO SCH (09:06)
[2023-08-05] MEDS: PANTOPRAZOLE 40 MG/10 ML VIAL IV SCH (09:06)
[2023-08-05 11:54] LABS: Appearance,Urine Clear (Clear); Bilirubin,Urine Negative (Negative); Blood,Urine Negative (Negative); Color,Urine Colorless; Glucose,Urine (UA) Negative (Negative); Ketones,Urine Negative (Negative); Leukocyte Esterase,Urine Negative (Negative); Nitrite,Urine Negative (Negative); PH, Urine 6.5 (5.0-8.0); Protein,Urine Negative (Negative); Specific Gravity,Urine 1.022 (1.001-1.035); Urobilinogen,Urine <2.0 mg/dL (<2.0)
[2023-08-05 12:05] LABS: Basophils % (A) 1 %; Eosinophils # (A) 0.3 k/uL (0-0.7); Eosinophils % (A) 6 %; HCT 37.4 % (34.0-46.0); Lymphocytes % (A) 24 %; MCH 32.2 pg (25.0-35.0); MCHC 32.1 g/dL (31.0-37.0); MCV 100.4 fL (80.0-100.0); Mean Platelet Volume 8.2; Monocytes # (A) 0.3 k/uL (0-1.0); Monocytes % (A) 6 %; Neutrophils # (A) 2.4 k/uL (1.3-7.7); Neutrophils % (A) 61 %; Platelet Count 229 k/uL (150-450); RBC 3.73 m/uL (3.80-5.40)
--- NOTE | 2023-08-05 12:21 | P.DS ---
Providers Date of admission: 08/04/23 18:54 Expected date of discharge: 08/05/23 Attending physician: Heaven Mendenhall MD Primary care physician: Roz Ribera [place] [facility] Course: Ms. 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 She is scheduled for robotic hysterectomy 09/30. The pain became acutely worse last night and was associated with nausea which drove her to be seen in the emergnecy room for pain control. She was ultimately admitted overnight for continued pain control. Fortunately we were able to move her surgery up to Sunday 08/06 at 830. She will go home with a 2-day supply of oxycodone and zofran to bridge her through to surgery. Assessment: 47 year old with tubal ligation ablation syndrome and acute on chronic abdominal pain Patient Condition at Discharge: Fair Plan - Discharge Summary New Discharge Prescriptions: New RX: oxyCODONE HCL [Roxicodone] 5 mg PO Q6HR PRN 3 Days #8 tab PRN Reason: Breakthrough Pain Ondansetron Odt [Zofran Odt] 4 mg PO Q8HR PRN #15 tab PRN Reason: Nausea No Action RX: Folic Acid 1 mg PO DAILY Dextroamphetamine/Amphetamine [Adderall] 20 mg PO BID Buprenorphine HCl/Naloxone HCl [Suboxone 8 mg-2 mg Sl Film] 1 film SL TID PRN PRN Reason: Pain/Opioid addiction Discharge Medication List Buprenorphine HCl/Naloxone HCl [Suboxone 8 mg-2 mg Sl Film] 1 film SL TID PRN [History] Dextroamphetamine/Amphetamine [Adderall] 20 mg PO BID 08/04/23 [History] RX: Folic Acid 1 mg PO DAILY 08/04/23 [History] Ondansetron Odt [Zofran Odt] 4 mg PO Q8HR PRN #15 tab 08/05/23 [Rx] RX: oxyCODONE HCL [Roxicodone] 5 mg PO Q6HR PRN 3 Days #8 tab 08/05/23 [Rx] Follow up Appointment(s)/Referral(s): Roz Ribera MD [Primary Care Provider] - 1-2 days Patient Instructions/Handouts: Pelvic Pain in Women (DC) Discharge Disposition: HOME SELF-CARE
[2023-08-05 12:22] LABS: ALT 11 U/L (4-34); AST 25 U/L (14-36); African American GFR (CKD) >90 (>60 ml/min/1.73 sqM); Albumin 3.9 g/dL (3.5-5.0); Alkaline Phosphatase 39 U/L (38-126); Anion Gap 4 mmol/L; Blood Urea Nitrogen 14 mg/dL (7-17); Calcium 8.5 mg/dL (8.4-10.2); Carbon Dioxide 24 mmol/L (22-30); Chloride 112 mmol/L (98-107); Glucose 85 mg/dL (74-99); Non-African American GFR(CKD) >90 (>60 ml/min/1.73 sqM); Potassium 4.4 mmol/L (3.5-5.1); Sodium 140 mmol/L (137-145); Total Bilirubin 0.6 mg/dL (0.2-1.3); Total Protein 6.3 g/dL (6.3-8.2)
[2023-08-05] MEDS: HYDROmorphone 2 MG TAB PO STA (18:39)
[2023-08-05] MEDS: KETOROLAC 15 MG/ML 1 ML VIAL IVP ONE (22:32)
--- NOTE | 2023-08-06 08:39 | P.PN ---
Subjective Progress Note Date: 08/06/23 Principal diagnosis: Acute on chronic abdominal pain The patient admits to suboxone use yesterday. She states she only uses it as needed, not daily. she does have a typed letter from her painter decorator available for review. She has a history of opioid addiction with No rcos after back surgery. She is in pain the morning, rating pain 8/10. No acute events overnight. No SOB, CP. Some nausea from the pain, no vomiting. No pain/swelling in the legs. Objective - Vital Signs Vital signs: Vital Signs Temp 98.6 F 08/06/23 08:00 Pulse 58 L 08/06/23 08:00 Resp 16 08/06/23 08:00 BP 94/58 08/06/23 08:00 Pulse Ox 98 08/05/23 23:35 FiO2 Intake & Output 08/05/23 08/06/23 08/06/23 18:59 06:59 18:59 Intake Total 900 Balance 900 Intake: Oral 900 Other: # Voids 2 1 - Exam His physical exam is performed. Breathing is non-labored. Abdomen is soft and mildly tender to palpation. Extremities are non-edematous and non-tender. - Labs CBC & Chem 7: 08/05/23 11:41 08/05/23 11:41 Labs: Abnormal Lab Results - Last 24 Hours (Table) 08/05/23 08/05/23 Range/Units 11:41 11:41 RBC 3.73 L (3.80-5.40) m/uL MCV 100.4 H (80.0-100.0) fL Chloride 112 H (98-107) mmol/L Assessment and Plan Assessment: 47 year old admitted for pain control overnight for acute on chronic pelvic pain in the context of tubal ligation ablation syndrome Plan: Plan for inpatient pain management until tomorrow morning at which time we are doing an inpatient hysterectomy for suspected tubal ligation ablation syndrome.
[2023-08-06] MEDS: HYDROmorphone 1 MG/ML 1 ML SYRINGE IVP STA (08:51)
[2023-08-06] MEDS: ACETAMINOPHEN TAB 500 MG TAB PO SCH (12:26)
[2023-08-06] MEDS: KETOROLAC 15 MG/ML 1 ML VIAL IVP SCH (12:32)
[2023-08-06] MEDS: HYDROmorphone 1 MG/ML 1 ML SYRINGE IVP PRN (15:45)
[2023-08-06] MEDS: BUPRENORPHINE-NALOX 8-2 MG TAB 1 EACH TAB.SUBL SL SCH (18:16)
[2023-08-07] MEDS ORDERED: fentaNYL (PF) 50 MCG/ML 2 ML AMP IV PRN (07:25)
[2023-08-07] MEDS: IV FLUID CONTINUATION 1,000 ML IV ONE (07:35)
[2023-08-07] MEDS: DEXAMETHASONE SOD PHOSPHATE 4 MG/ML 1 ML VIAL IV ONE (07:52)
[2023-08-07] MEDS: ONDANSETRON 4 MG/2 ML VIAL IVP ONE (07:52)
[2023-08-07] MEDS: LACTATED RINGERS 1,000 ML IV SCH (07:54)
[2023-08-07] MEDS: fentaNYL (PF) 50 MCG/1 ML VIAL IVP ONE ×2 (08:19→11:35)
[2023-08-07] MEDS: MIDAZOLAM 2 MG/2 ML VIAL IVP ONE (08:19)
[2023-08-07] MEDS ORDERED: diphenhydrAMINE 50 MG/ML 1 ML VIAL IVP PRN (08:37)
[2023-08-07] MEDS ORDERED: NALOXONE 0.4 MG/ML 1 ML VIAL IV PRN (08:37)
[2023-08-07] MEDS ORDERED: HYDROmorphone 0.5 MG/0.5 ML SYRINGE IVP PRN (08:37)
--- NOTE | 2023-08-07 08:37 | P.ANPRN ---
Procedure Note - Anesthesia - Epidural/Spinal Spinal Time Out Performed: Yes Date of Procedure: 08/07/23 Procedure Start Time: 08:18 Procedure Stop Time: 08:27 Location of Patient: PreOp Indication: Acute Post-Operative Pain, Requested by Surgeon Sedation Type: Sedate with meaningful contact maintained Preparation: Sterile Prep Position: Sitting Needle Guage: 25 Blood Aspirated: No Pain Paresthesia on Injection Noted: No Events: Uneventful and Well Tolerated
[2023-08-07] MEDS ORDERED: PROPOFOL 10 MG/ML 20 ML VIAL IV ONE (08:46)
[2023-08-07] MEDS ORDERED: SUCCINYLCHOLINE CHLORIDE 200 MG/10 ML VIAL IV ONE (08:46)
[2023-08-07] MEDS ORDERED: diphenhydrAMINE 50 MG/ML 1 ML VIAL ONE (08:46)
[2023-08-07] MEDS ORDERED: KETOROLAC 15 MG/ML 1 ML VIAL ONE (08:46)
[2023-08-07] MEDS ORDERED: ROCURONIUM 10 MG/ML (5 ML VIAL) IV ONE (08:46)
[2023-08-07] MEDS ORDERED: GLYCOPYRROLATE 0.2 MG/ML 2 ML VIAL ONE (08:46)
[2023-08-07] MEDS ORDERED: KETAMINE HCL IN 0.9 % NACL 50 MG/5 ML SYRINGE ONE (08:46)
[2023-08-07] MEDS ORDERED: fentaNYL (PF) 50 MCG/ML 2 ML AMP ONE (08:46)
[2023-08-07] MEDS ORDERED: ePHEDrine 50 MG/ML 1 ML VIAL ONE (08:46)
[2023-08-07] MEDS ORDERED: LIDOCAINE 1% INJ 10MG/ML (20 ML MDV) ONE (08:46)
[2023-08-07] MEDS ORDERED: ceFAZolin 1 GM/50 ML BAG (PMX) ONE (08:46)
[2023-08-07] MEDS ORDERED: NEOSTIGMINE 1 MG/ML 10 ML VIAL ONE (08:46)
[2023-08-07] MEDS: SODIUM CHLORIDE 0.9% 100 ML with ceFAZolin 2,000 MG IV ONE (09:00)
[2023-08-07] MEDS: BUPIVACAINE (PF) 0.25% 30 ML VIAL SQ ONE (09:24)
[2023-08-07] MEDS: LACTATED RINGERS 1,000 ML IV ONE (09:51)
[2023-08-07] MEDS ORDERED: SIMETHICONE 80 MG CHEWABLE PO PRN (10:16)
--- NOTE | 2023-08-07 10:32 | P.OP ---
Date of Procedure: 08/07/23 Preoperative Diagnosis: 1. Chronic Pelvic Pain 2. Tubal Ligation Ablation Syndrome Postoperative Diagnosis: Same and Abdominal Wall Adhesions Procedure(s) Performed: Robotic Assisted Total Laparoscopic Hysterectomy, Bilateral Salpingectomy, Lysis of Adhesions (10 minutes), and Cystoscopy Implants: None Anesthesia: FLOR Surgeon: Heaven Mendenhall Ferris Wheel Attendant #1: Manohar Guzman Estimated Blood Loss (ml): 40 IV fluids (ml): 600 Urine output (ml): 1,250 Pathology: other (uterus, bilateral fallopian tubes, cervix) Condition: stable Disposition: floor Indications for Procedure: Ms. Logan is a 47 year old with acute on chronic pelvic pain which initially began last year and has progressively worsened. She has a history of tubal ligation and endometrial ablation many years ago. Risks, benefits, and alternatives to RATLH, Cystoscopy are discussed with the patient including risk of bleeding, infection, damage to surrounding structures including bladder/bowel/ureters, and post-operative VTE. The patient also understands that this hysterectomy is not guaranteed to resolve her pelvic pain. All questions are answered and the patient would like to proceed with surgery. Operative Findings: Omental adhesions to the anterior abdominal wall are noted upon entry. Filshie clips are seen on bilateral fallopian tubes. Uterus and ovaries are grossly normal appearing. Description of Procedure: Prior to the beginning of the procedure, the team paused to verify the patients identity, the procedure to be performed (in accordance with the consent,) and the correct side/site. The patient was positioned appropriately. All relevant images and results were properly labeled and displayed. We addressed antibiotic prophylaxis and fluids for irrigation as applicable to this patient. Any safety precautions were addressed. The patient was taken to the operating room where general anesthesia was induced without difficulty. She was then positioned in the dorsal lithotomy position [facility]. Positioning included placing her arms at her sides. After the patient was placed in what was felt to be a neurologically safe position, deep Trendelenburg position was tested prior to the operative procedure, to ensure that she would not move on the operating table. The patient was then prepped and draped in the normal sterile fashion for a combined abdominovaginal surgery. A Stewart catheter was placed in the bladder for continuous drainage. Uterus was sounded to 7 cm. Silver Curve-Care manipulator was placed in the uterus for manipulation. Attention was then placed to the abdomen. The normal length Veress needle was introduced into the abdominal cavity while tenting the abdominal wall. Low pressure was noted confirming appropriate placement. The abdomen was then insufflated to 15mmHg for the remainder of the case. The Veress needle was removed, and an 8 mm port was placed at the umbilical site under direct laparscopic visualization and there was no evidence of injury from the trocar placement. Visualization of the intraabdominal cavity showed normal pelvic anatomy without evidence of adhesions. The port sites for the remainder of the case were then measured out and placed under direct visualization. On the left side, one 8 mm robotic assist port and one 10 mm assist port were placed. On the right side, one 8 mm robotic port was placed. The Ligasure device was used to perform lysis of omental adhesions to anterior abdominal wall. The [employer] robot was then brought to the operative field in a lateral docking style to the left of the patient and the robot was docked to the ports. All robotic instruments were brought into the pelvis under direct visualization with monopolar scissors in arm #3 and vessel sealer in arm #1. Bilateral ureters were visualized prior to starting the surgery. The right uteroovarian ligement was cauterized and cut. The right round ligament was cauterized and cut. Broad ligament was opened and bladder flap created. This was repeated on the left side with a portion of the left tube being removed at that time with the vessel sealer. The peritoneum of the bilateral broad ligaments was then taken down and monopolar cautery used to skeletonize the uterine arteries bilaterally. During the course of this dissection, the anterior leaf of the broad ligament was also taken down over the anterior aspect of the uterus and cervix to create a bladder flap. The bladder was then dissected off the cervix and upper vagina with the monopolar scissors and gentle blunt dissection. The bilateral uterine arteries were then cauterized and divided at the level of the internal cervical os. The monopolar cautery was used to incise the vaginal cuff. The uterus, along with the cervix was removed vaginally. Cuff was closed in with 0-Stratifix sutures. Excellent hemostasis was noted at this time. A 70 degree cystoscopy was performed which confirmed no suture placement within the bladder, no trauma to the bladder. Good efflux was noted from both ureteric orifices. The robot was undocked from the trocars and brought out of the operative field. The remainder of the ports were removed, and the gas was allowed to escape. All skin incisions were infiltrated with lidocaine and closed with 4-0 Monocryl and dermabond. Hemostasis was noted to be excellent throughout, and final sponge, instrument, and needle count was noted to be correct. The patient was moved back to the preoperative holding area in stable condition having tolerated the procedure well. A physician assistant professor surgical technology was utilized for the entire procedure due to the need for tissue retraction, dissection of vital structures, prevention and management of blood loss, and reduction in overall operative and anesthesia time as is the standard of care.
[2023-08-07] MEDS ORDERED: fentaNYL (PF) 50 MCG/ML 5 ML AMP IVP STA (11:27)
[2023-08-07] MEDS: ACETAMINOPHEN IV (For NPO) 1,000 MG in EMPTY BAG 1 BAG IVPB SCH (15:32)
[2023-08-07] MEDS: KETOROLAC 15 MG/ML 1 ML VIAL IVP PRN (19:52)
[2023-08-07] MEDS: SENNOSIDES-DOCUSATE SODIUM 1 EACH TAB PO SCH (19:54)
[2023-08-07 20:26] VITALS: RESP 15
[2023-08-07] MEDS: fentaNYL (PF) 50 MCG/ML 2 ML AMP IVP STA (22:00)
[2023-08-08 01:19] VITALS: TEMP 98.7
[2023-08-08 04:24] VITALS: PULSE 97
[2023-08-08 06:48] VITALS: BP 90/49
[2023-08-08 07:21] LABS: Basophils % (A) 0 %; Eosinophils # (A) 0.1 k/uL (0-0.7); Eosinophils % (A) 1 %; HCT 31.2 % (34.0-46.0); HGB 10.4 gm/dL (11.4-16.0); Lymphocytes % (A) 13 %; MCH 32.9 pg (25.0-35.0); MCHC 33.4 g/dL (31.0-37.0); MCV 98.4 fL (80.0-100.0); Mean Platelet Volume 8.4; Monocytes # (A) 0.4 k/uL (0-1.0); Monocytes % (A) 5 %; Neutrophils # (A) 6.2 k/uL (1.3-7.7); Neutrophils % (A) 79 %; Platelet Count 189 k/uL (150-450); RBC 3.17 m/uL (3.80-5.40); RDW 12.2 % (11.5-15.5); WBC 7.8 k/uL (3.8-10.6)
--- NOTE | 2023-08-08 08:08 | P.PN ---
Subjective Progress Note Date: 08/08/23 Principal diagnosis: POD#1 s/p SUZANNE, bilateral salpingectomy, lysis of adhesions The patient is doing well this morning and had no acute events overnight. She rates her pain 8/10 today but is 2 hours past her pain medications being due. She reports minimal vaginal spotting, not yet passing flatus, voiding without difficulty, ambulating, and eating/drinking without nausea or vomiting. She denies chest pain, shortness of breathing, fevers, or chills overnight. She denies pain or swelling in the legs. Objective - Vital Signs Vital signs: Vital Signs Temp 98.7 F 08/08/23 04:15 Pulse 97 08/08/23 04:15 Resp 15 08/08/23 04:15 BP 90/49 08/08/23 06:21 Pulse Ox 98 08/08/23 06:21 FiO2 Intake & Output 08/07/23 08/08/23 08/08/23 18:59 06:59 18:59 Intake Total 1350 960 Output Total 3040 800 Balance -1690 160 Intake: IV 1350 Oral 960 Output: Urine 3000 800 Uretheral (Stewart) 1500 Estimated Blood Loss 40 Other: # Voids 1 - Exam His physical exam is performed. Breathing is non-labored. Abdomen is soft and mildly tender to palpation. Incisions clean/dry/intact. Extremities are non- edematous and non-tender. - Labs CBC & Chem 7: 08/08/23 05:57 08/05/23 11:41 Labs: Abnormal Lab Results - Last 24 Hours (Table) 08/08/23 Range/Units 05:57 RBC 3.17 L (3.80-5.40) m/uL Hgb 10.4 L (11.4-16.0) gm/dL Hct 31.2 L (34.0-46.0) % Assessment and Plan Assessment: 47 year old POD#1 s/p SUZANNE, BS, SRINI, Cystoscopy for chronic pelvic pain Plan: Patient meeting postoperative milestones appropriately. Will work on better pain control today. Gabapentin use encouraged for additional pain control. Patient willing to try it. Will reevaluate this PM for discharge today.
--- NOTE | 2023-08-08 08:17 | P.DS ---
Providers Date of admission: 08/04/23 18:54 Expected date of discharge: 08/08/23 Attending physician: Heaven Mendenhall MD Primary care physician: Roz Ribera [facility] Course: Ms. Logan is a 47 year old POD#1 s/p CAROLINA PALACIOS, SRINI, Cystoscopy for chronic abdominal pain and suspected tubal ligation ablation syndrome. The patient arrived to the hospital on 08/04 with acute on chronic pelvic pain and was admitted for pain control. The patient does have a history of opioid addiction and is prescribed Suboxone 8mg TID through a pain control clinic. The decision was made to expedite her surgery which was initially scheduled for . The surgery was performed 08/06. Some left upper quadrant adhesions were appreciated and taken down during the case. Otherwise, the pelvic anatomy was unremarkable and the case was uncomplicated. The patient is doing well this morning and had no acute events overnight. She reports minimal vaginal spotting, voiding without difficulty, ambulating, and eating/drinking without nausea or vomiting.She denies chest pain, shortness of breathing, fevers, or chills overnight. She denies pain or swelling in the legs. Postoperative restrictions are reviewed with the patient including pelvic rest for 6 weeks, no lifting heavier than 15 pounds for 6 weeks. The patient is encouraged to call the office if she experiences any heavy bleeding, foul-smelling discharge, breast complaints, or any if she has any other concerns. She will follow up in the office with in 2 weeks for postoperative exam. She will go home with a 3-day supply of Oxycodone, a 3-day supply of Gabapentin, Motrin and Tylenol. All questions are answered. Assessment: 47 year old POD#1 s/p CAROLINA PALACIOS, SRINI, Cystoscopy for chronic pelvic pain and suspected tubal ligation ablation syndrome Patient Condition at Discharge: Fair Plan - Discharge Summary New Discharge Prescriptions: New oxyCODONE HCL [Roxicodone] 5 mg PO Q6HR PRN 3 Days #8 tab PRN Reason: Breakthrough Pain Ondansetron Odt [Zofran Odt] 4 mg PO Q8HR PRN #15 tab PRN Reason: Nausea Ibuprofen [Motrin] 600 mg PO Q6HR PRN #30 tab PRN Reason: Mild Pain (Scale 1 To 3) oxyCODONE HCL [Roxicodone] 10 mg PO Q6HR PRN 3 Days #12 tab PRN Reason: Breakthrough Pain Acetaminophen Tab [Tylenol] 650 mg PO Q6H PRN #30 tab PRN Reason: Mild Pain (Scale 1 To 3) Gabapentin 300 mg PO TID 3 Days #9 cap No Action Folic Acid 1 mg PO DAILY Dextroamphetamine/Amphetamine [Adderall] 20 mg PO BID Buprenorphine HCl/Naloxone HCl [Suboxone 8 mg-2 mg Sl Film] 1 film SL TID PRN PRN Reason: Pain/Opioid addiction Discharge Medication List Buprenorphine HCl/Naloxone HCl [Suboxone 8 mg-2 mg Sl Film] 1 film SL TID PRN 08/04/23 [History] Dextroamphetamine/Amphetamine [Adderall] 20 mg PO BID 08/04/23 [History] Folic Acid 1 mg PO DAILY 08/04/23 [History] Ondansetron Odt [Zofran Odt] 4 mg PO Q8HR PRN #15 tab 08/05/23 [Rx] oxyCODONE HCL [Roxicodone] 5 mg PO Q6HR PRN 3 Days #8 tab 08/05/23 [Rx] Acetaminophen Tab [Tylenol] 650 mg PO Q6H PRN #30 tab 08/08/23 [Rx] Gabapentin 300 mg PO TID 3 Days #9 cap 08/08/23 [Rx] Ibuprofen [Motrin] 600 mg PO Q6HR PRN #30 tab 08/08/23 [Rx] oxyCODONE HCL [Roxicodone] 10 mg PO Q6HR PRN 3 Days #12 tab 08/08/23 [Rx] Follow up Appointment(s)/Referral(s): Roz Ribera MD [Primary Care Provider] - 1-2 days Heaven Mendenhall MD [STAFF PHYSICIAN] - 2 Weeks Patient Instructions/Handouts: Pelvic Pain in Women (DC), Laparoscopic Hysterectomy (DC) Activity/Diet/Wound Care/Special Instructions: Postoperative Instructions 1. No heavy lifting or straining (exercising) until after 6 week checkup. 2. Do not resume sexual relations for 6 weeks or longer if uncomfortable. 3. Keep abdominal incision clean and dry: You may wear a dressing if more comfortable. 4. Keep any areas repaired with stitches clean and dry. 5. Call the office, , within the next week to make appointment for your 2 week checkup 6. Report any of the following occurrences to the doctor promptly: a. Heavy, excessive bleeding b. Chills, fever c. Burning or frequency of urination d. Pain or redness around the incisions Discharge/Stand Alone Forms: AA Meetings [facility] 22 & 24 - [facility], AA Meetings [place], Who Do I Call?, Community Resources, Outpatient Counseling, In Substance Abuse Facilities Discharge Disposition: HOME SELF-CARE
--- NOTE | 2023-08-08 09:03 | P.PN ---
Progress Note - Text Progress Note Date: 08/08/23 Anesthesia Postop day 1 Subjective: Status Post robotic vaginal hysterectomy with Duramorph. Patient seen and examined. Complaining of nausea. VAS 6 out of 10. No vomiting or pruritus. Denies fever. Gross lower extremity strength intact. Without apparent anesthetic complications. Objective: Vital signs reviewed Heart: Regular Rate Lungs: Good chest excursion Abdomen: Appears nondistended Assessment: Status post robotic vaginal hysterectomy with Duramorph postop day 1 Plan: 1. Continue current care with your medical management. Anticipated end to the duration of the Duramorph around surgery time today. You may see increased pain needs around this time. 2. This note was dictated using Approva software. Please be advised there is a potential for misspellings or errors in emergency vehicle driver.
== END 2023-08-08 13:15 | disposition home or self-care (01) ==
LOC: EC 13:21 → 4FBP 18:54
PROVIDERS: ADMIT Obstetrics & Gynecology; ATTEND Obstetrics & Gynecology
DX: N83.8 Other noninflammatory disorders of ovary, fallopian tube and broad ligament (principal); N88.8 Other specified noninflammatory disorders of cervix uteri; G89.29 Other chronic pain; Z98.51 Tubal ligation status; N72 Inflammatory disease of cervix uteri
CPT/HCPCS: 58571; S2900; 36415; 74177; 80053; 81003; 81025; 82150; 83690; 85025; 85610; 85730; 86850; 86900; 86901; 88307; 96365; 96366; 96367; 96375; 96376; 99285

== ENCOUNTER 2024-02-22 04:22 | Observation (INO) | payer OTHER ==
[2024-02-22 04:47] LABS: Basophils % (A) 1 %; Eosinophils # (A) 0.3 k/uL (0-0.7); Eosinophils % (A) 6 %; HGB 12.7 gm/dL (11.4-16.0); Lymphocytes # (A) 1.7 k/uL (1.0-4.8); Lymphocytes % (A) 28 %; MCH 31.2 pg (25.0-35.0); MCHC 33.4 g/dL (31.0-37.0); MCV 93.6 fL (80.0-100.0); Mean Platelet Volume 7.5; Monocytes # (A) 0.4 k/uL (0-1.0); Monocytes % (A) 7 %; Neutrophils # (A) 3.3 k/uL (1.3-7.7); Neutrophils % (A) 57 %; Platelet Count 249 k/uL (150-450); RBC 4.06 m/uL (3.80-5.40); RDW 11.8 % (11.5-15.5); WBC 5.9 k/uL (3.8-10.6)
--- NOTE | 2024-02-22 04:47 | ED ---
Chest Pain HPI - General Chief Complaint: Chest Pain Stated Complaint: Chest Pain Time Seen by Provider: 02/22/24 04:45 Source: patient Mode of arrival: ambulatory Limitations: no limitations - Related Data Home Medications Medication Instructions Recorded Confirmed Buprenorphine HCl/Naloxone HCl 1 film SL TID PRN 08/04/23 08/04/23 [Suboxone 8 mg-2 mg Sl Film] Dextroamphetamine/Amphetamine 20 mg PO BID 08/04/23 08/04/23 [Adderall] Folic Acid 1 mg PO DAILY 08/04/23 08/04/23 Previous Rx's Medication Instructions Recorded Ondansetron Odt [Zofran Odt] 4 mg PO Q8HR PRN #15 tab 08/05/23 oxyCODONE HCL [Roxicodone] 5 mg PO Q6HR PRN 3 Days #8 tab 08/05/23 Acetaminophen Tab [Tylenol] 650 mg PO Q6H PRN #30 tab 08/08/23 Gabapentin 300 mg PO TID 3 Days #9 cap 08/08/23 Ibuprofen [Motrin] 600 mg PO Q6HR PRN #30 tab 08/08/23 oxyCODONE HCL [Roxicodone] 10 mg PO Q6HR PRN 3 Days #12 tab 08/08/23 Allergies Allergy/AdvReac Type Severity Reaction Status Date / Time morphine AdvReac Nausea & Verified 02/22/24 04:34 Vomiting Review of Systems ROS Statement: Those systems with pertinent positive or pertinent negative responses have been documented in the HPI. ROS Other: All systems not noted in ROS Statement are negative. EKG Findings - EKG Comments: EKG Findings:: Sinus rhythm, rate 65 bpm, NE interval 134 ms, QRS duration 87 m s, QT/QTc 386/397 ms, normal axis, no ST elevations or depressions, no arrhythmia, no delta waves, no Brugada pattern,compared to EKG performed on 06/29/2023, no significant changes from prior, no new ST elevations or depressions Past Medical History Past Medical History: No Reported History History of Any Multi-Drug Resistant Organisms: None Reported Past Surgical History: Ablation, Appendectomy, Tubal Ligation Additional Past Surgical History / Comment(s): uterine ablasion, liposuction, patient reports having ongoing pain for 3 weeks and is scheduled 10/01/23 for hysterectomy. Past Anesthesia/Blood Transfusion Reactions: No Reported Reaction Past Psychological History: No Psychological Hx Reported Smoking Status: Never smoker Past Alcohol Use History: Occasional Past Drug Use History: None Reported General Exam Limitations: no limitations Course Vital Signs 02/22/24 04:27 Temperature 97.6 F Pulse Rate 66 Respiratory 18 Rate Blood Pressure 105/71 O2 Sat by Pulse 97 Oximetry Disposition Referrals: Roz Ribera MD [Primary Care Provider] - 1-2 days
[2024-02-22 05:02] LABS: AST 27 U/L (14-36); African American GFR (CKD) >90 (>60 ml/min/1.73 sqM); Albumin 4.6 g/dL (3.5-5.0); Alkaline Phosphatase 96 U/L (38-126); Anion Gap 7 mmol/L; Blood Urea Nitrogen 18 mg/dL (7-17); Calcium 9.4 mg/dL (8.4-10.2); Carbon Dioxide 24 mmol/L (22-30); Chloride 107 mmol/L (98-107); Glucose 68 mg/dL (74-99); Magnesium 1.8 mg/dL (1.6-2.3); Non-African American GFR(CKD) >90 (>60 ml/min/1.73 sqM); Potassium 3.8 mmol/L (3.5-5.1); Sodium 138 mmol/L (137-145); Total Bilirubin 0.2 mg/dL (0.2-1.3); Total Protein 7.1 g/dL (6.3-8.2)
[2024-02-22 05:03] LABS: ALT 13 U/L (4-34)
[2024-02-22 05:05] LABS: INR 0.9 (<1.2); Prothrombin Time 10.1 sec (10.0-12.5)
--- NOTE | 2024-02-22 05:22 | XR ---
EXAMINATION TYPE: XR chest 2V DATE OF EXAM: 02/22/2024 CLINICAL HISTORY: Chest pain TECHNIQUE: Frontal and lateral views of the chest are obtained. COMPARISON: None FINDINGS: There is no focal air space opacity, pleural effusion, or pneumothorax seen. The cardiac silhouette size is within normal limits. The osseous structures are intact. IMPRESSION: No acute process. [facility], , 02/22/2024 5:20 AM
--- NOTE | 2024-02-22 07:29 | ED ---
Chest Pain HPI - General Chief Complaint: Chest Pain Stated Complaint: Chest Pain Time Seen by Provider: 02/22/24 04:45 Source: patient, RN notes reviewed Mode of arrival: ambulatory Limitations: no limitations - History of Present Illness Initial Comments: Is a 48-year-old female presents emergency department complaint of chest pain. Patient states that centralized chest pain radiating up to the right side of her neck and into her back. Patient states pain has been becoming more intensified, more persistent pain. She has no prior cardiac disease no history of hypertension hyperlipidemia or diabetes. Patient states it did make her feel diaphoretic this morning, short of breath. Patient denies any recent traveling no history of DVT or PE no leg pain or leg swelling. - Related Data Home Medications Medication Instructions Recorded Confirmed Buprenorphine HCl/Naloxone HCl 1 film SL TID PRN 08/04/23 08/04/23 [Suboxone 8 mg-2 mg Sl Film] Dextroamphetamine/Amphetamine 20 mg PO BID 08/04/23 08/04/23 [Adderall] Folic Acid 1 mg PO DAILY 08/04/23 08/04/23 Previous Rx's Medication Instructions Recorded Ondansetron Odt [Zofran Odt] 4 mg PO Q8HR PRN #15 tab 08/05/23 oxyCODONE HCL [Roxicodone] 5 mg PO Q6HR PRN 3 Days #8 tab 08/05/23 Acetaminophen Tab [Tylenol] 650 mg PO Q6H PRN #30 tab 08/08/23 Gabapentin 300 mg PO TID 3 Days #9 cap 08/08/23 Ibuprofen [Motrin] 600 mg PO Q6HR PRN #30 tab 08/08/23 oxyCODONE HCL [Roxicodone] 10 mg PO Q6HR PRN 3 Days #12 tab 08/08/23 Allergies Allergy/AdvReac Type Severity Reaction Status Date / Time morphine AdvReac Nausea & Verified 02/22/24 04:34 Vomiting Review of Systems ROS Statement: Those systems with pertinent positive or pertinent negative responses have been documented in the HPI. ROS Other: All systems not noted in ROS Statement are negative. Past Medical History Past Medical History: No Reported History History of Any Multi-Drug Resistant Organisms: None Reported Past Surgical History: Ablation, Appendectomy, Tubal Ligation Additional Past Surgical History / Comment(s): uterine ablasion, liposuction, patient reports having ongoing pain for 3 weeks and is scheduled 10/01/23 for hysterectomy. Past Anesthesia/Blood Transfusion Reactions: No Reported Reaction Past Psychological History: No Psychological Hx Reported Smoking Status: Never smoker Past Alcohol Use History: Occasional Past Drug Use History: None Reported General Exam Limitations: no limitations General appearance: alert, in no apparent distress Head exam: Present: atraumatic, normocephalic, normal inspection Eye exam: Present: normal appearance, PERRL, EOMI. Absent: scleral icterus, conjunctival injection, periorbital swelling ENT exam: Present: normal exam, mucous membranes moist Neck exam: Present: normal inspection, full ROM. Absent: tenderness, meningismus, lymphadenopathy Respiratory exam: Present: normal lung sounds bilaterally. Absent: respiratory distress, wheezes, rales, rhonchi, stridor Cardiovascular Exam: Present: regular rate, normal rhythm, normal heart sounds. Absent: systolic murmur, diastolic murmur, rubs, gallop, clicks GI/Abdominal exam: Present: soft, normal bowel sounds. Absent: distended, tenderness, guarding, rebound, rigid Neurological exam: Present: alert, oriented X3, CN II-XII intact Skin exam: Present: warm, dry, intact, normal color. Absent: rash Course Vital Signs 02/22/24 04:27 Temperature 97.6 F Pulse Rate 66 Respiratory 18 Rate Blood Pressure 105/71 O2 Sat by Pulse 97 Oximetry Chest Pain MDM - MDM Was pt. sent in by a medical professional or institution (, PA, HAM CLERK, urgent care, hospital, or residential...) When possible be specific @ -No Did you speak to anyone other than the patient for history (EMS, parent, family, police, friend...)? What history was obtained from this source @ -No Did you review nursing and triage notes (agree or disagree)? Why? @ -I reviewed and agree with nursing and triage notes Were old charts reviewed (outside hosp., previous admission, EMS record, old EKG, old radiological studies, urgent care reports/EKG's, residential records)? Report findings @ -No old charts were reviewed Differential Diagnosis (chest pain, altered mental status, abdominal pain women, abdominal pain men, vaginal bleeding, weakness, fever, dyspnea, syncope, headache, dizziness, GI bleed, back pain, seizure, CVA, palpatations, mental health, musculoskeletal)? @ -Differential Chest Pain: Stable Angina, Unstable Angina, STEMI, NSTEMI Aortic Dissection, Pneumothorax, Musculoskeletal, Esophageal Spasm GERD, Cholecystitis, Pancreatitis, Zoster, this is not meant to be an all-inclusive list. EKG interpreted by me (3pts min.). @ -As above X-rays interpreted by me (1pt min.). @ -Chest x-ray shows no acute cardiopulmonary process CT interpreted by me (1pt min.). @ -None done U/S interpreted by me (1pt. min.). @ -None done What testing was considered but not performed or refused? (CT, X-rays, U/S, labs)? Why? @ -None What meds were considered but not given or refused? Why? @ -None Did you discuss the management of the patient with other professionals (professionals i.e. , PA, HAM CLERK, lab, RT, psych nurse, sexual assault social worker, wrapping machine tender, teacher, compliance review officer, bottle caser)? Give summary @ -EMH for admission Was smoking cessation discussed for >3mins.? @ -No Was critical care preformed (if so, how long)? @ -No Were there social determinants of health that impacted care today? How? (Homelessness, low income, unemployed, alcoholism, drug addiction, transportation, low edu. Level, literacy, decrease access to med. care, senior care, rehab)? @ -No Was there de-escalation of care discussed even if they declined (Discuss DNR or withdrawal of care, Hospice)? DNR status @ -No What co-morbidities impacted this encounter? (DM, HTN, Smoking, COPD, CAD, Cancer, CVA, ARF, Chemo, Hep., AIDS, mental health diagnosis, sleep apnea, morbid obesity)? @ -None Was patient admitted / discharged? Hospital course, mention meds given and route, prescriptions, significant lab abnormalities, going to OR and other pertinent info. @ -Admitted patient presented for very concerning ACS symptoms for stroke was negative patient will be admitted for cardiac rule out. Undiagnosed new problem with uncertain prognosis? @ -No Drug Therapy requiring intensive monitoring for toxicity (Heparin, Nitro, Insulin, Cardizem)? @ -No Were any procedures done? @ -No Diagnosis/symptom? @ -[Chest pain Acute, or Chronic, or Acute on Chronic? @ -Acute Uncomplicated (without systemic symptoms) or Complicated (systemic symptoms)? @ -complicated Side effects of treatment? @ -No Exacerbation, Progression, or Severe Exacerbation? @ -No Poses a threat to life or bodily function? How? (Chest pain, [place], NE, pneumonia, PE, COPD, DKA, ARF, appy, cholecystitis, CVA, Diverticulitis, Homicidal, Suicidal, threat to staff... and all critical care pts) @ -yes possible ACS Disposition Clinical Impression: Chest pain Disposition: ADMITTED IP TO THIS HOSP Condition: Fair Referrals: Roz Ribera MD [Primary Care Provider] - 1-2 days Time of Disposition: 08:13
[2024-02-22] MEDS ORDERED: NITROGLYCERIN SL TABS 0.4 MG TAB SUBLINGUAL PRN (08:12)
[2024-02-22] MEDS: ASPIRIN 81 MG PO STA (09:48)
--- NOTE | 2024-02-22 11:24 | P.CRDCN ---
History of Present Illness History of present illness: HISTORY OF PRESENT ILLNESS: This is a 48-year-old female with a past medical history significant for ADD and opioid addiction on Suboxone. 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 We have been asked to see the patient in consultation for chest pain. Patient examined at the bedside in the emergency room. Patient states she has been having chest discomfort on and off for the past week. She states the pain starts in the middle of her chest and then goes into her neck and then into her back. She states sometimes the pain last for couple minutes and other times it would last for an hour. She denies any shortness of breath. She denies any known cardiac history. She states she is normally very active on a regular basis. She denies any history of hypertension, hyperlipidemia, or diabetes. Denies any family history of coronary artery disease. She is a non-smoker. She currently denies any drug use or alcohol use. DIAGNOSTICS: - EKG reveals sinus mechanism with no signs of acute ischemia - Chest xray negative for acute process - Laboratory data: WBC 5.9. Hemoglobin 12.7. Platelet count 249. D-dimer 0.22. Sodium 138. Potassium 3.8. BUN 18. Creatinine 0.76. Magnesium 1.8. Troponin negative x 2. proBNP 48. - Current home cardiac medications include none REVIEW OF SYSTEMS: At the time of my exam: CONSTITUTIONAL: Denies fever or chills. HEENT: Denies blurred vision, vision changes, or eye pain. Denies hemoptysis CARDIOVASCULAR: Denies chest pain. Denies orthopnea. Denies PND. Denies palpitations RESPIRATORY: Denies shortness of breath. GASTROINTESTINAL: Denies abdominal pain. Denies nausea or vomiting. HEMATOLOGIC: Denies bleeding disorders. GENITOURINARY: Denies any blood in urine. SKIN: Denies pruitis. Denies rash. PHYSICAL EXAM: VITAL SIGNS: Reviewed. GENERAL: Well-developed in no acute distress. HEENT: Head is normocephalic. Pupils are equal, round. Sclerae anicteric. Mucous membranes of the mouth are moist. Neck supple. No JVD or thyromegaly LUNGS: Respirations even and unlabored. Lungs essentially clear to auscultation bilaterally. HEART: Regular rate and rhythm. S1 and S2 heard. ABDOMEN: Soft. Nondistended. Nontender. EXTREMITIES: Normal range of motion. No clubbing or cyanosis. Peripheral pulses intact. No lower extremity edema NEUROLOGIC: Awake and alert. Oriented x 3. ASSESSMENT: Chest pain History of opioid addiction, maintained on Suboxone History of ADD/ADHD, on Adderall outpatient PLAN: An acute coronary event has been ruled out Obtain 2D echo to assess cardiac structure and function Patient to undergo stress echocardiogram today If negative, she may be discharged home from a cardiac standpoint Nurse practitioner note has been reviewed by physician. Signing provider agrees with the documented findings, assessment, and plan of care documented by [employer] as a scribe. Past Medical History Past Medical History: No Reported History History of Any Multi-Drug Resistant Organisms: None Reported Past Surgical History: Ablation, Appendectomy, Tubal Ligation Additional Past Surgical History / Comment(s): uterine ablasion, liposuction, patient reports having ongoing pain for 3 weeks and is scheduled 10/01/23 for hysterectomy. Past Anesthesia/Blood Transfusion Reactions: No Reported Reaction Past Psychological History: No Psychological Hx Reported Smoking Status: Never smoker Past Alcohol Use History: Occasional Past Drug Use History: None Reported Medications and Allergies Home Medications Medication Instructions Recorded Confirmed Type Dextroamphetamine/Amphetamine 20 mg PO BID@0400,1400 08/04/23 02/22/24 History [Adderall] Buprenorphine-Nalox 8-2 mg Tab 1 tab PO QID 02/22/24 02/22/24 History [Suboxone 8-2 mg Tab] Allergies Allergy/AdvReac Type Severity Reaction Status Date / Time morphine AdvReac Nausea & Verified 02/22/24 09:31 Vomiting Physical Exam Vitals: Vital Signs Temp Pulse Resp BP Pulse Ox 02/22/24 04:27 97.6 F 66 18 105/71 97 Intake and Output 02/21/24 02/22/24 02/22/24 22:59 06:59 14:59 Other: Weight 77.111 kg Results 02/22/24 04:36 02/22/24 04:36 Cardiac Enzymes 02/22/24 02/22/24 02/22/24 Range/Units 04:36 04:36 09:04 AST 27 (14-36) U/L Troponin I <0.012 <0.012 (0.000-0.034) ng/mL Coagulation 02/22/24 Range/Units 04:36 PT 10.1 (10.0-12.5) sec APTT 25.0 (22.0-30.0) sec CBC 02/22/24 Range/Units 04:36 WBC 5.9 (3.8-10.6) k/uL RBC 4.06 (3.80-5.40) m/uL Hgb 12.7 (11.4-16.0) gm/dL Hct 38.0 (34.0-46.0) % Plt Count 249 (150-450) k/uL Comprehensive Metabolic Panel 02/22/24 Range/Units 04:36 Sodium 138 (137-145) mmol/L Potassium 3.8 (3.5-5.1) mmol/L Chloride 107 (98-107) mmol/L Carbon Dioxide 24 (22-30) mmol/L BUN 18 H (7-17) mg/dL Creatinine 0.76 (0.52-1.04) mg/dL Glucose 68 L (74-99) mg/dL Calcium 9.4 (8.4-10.2) mg/dL AST 27 (14-36) U/L ALT 13 (4-34) U/L Alkaline Phosphatase 96 (38-126) U/L Total Protein 7.1 (6.3-8.2) g/dL Albumin 4.6 (3.5-5.0) g/dL Current Medications Generic Name Dose Route Start Last Admin Trade Name Freq PRN Reason Stop Dose Admin Aspirin 325 mg 02/23/24 09:00 Aspirin 325 Mg Tab PO DAILY [facility] Buprenorphine/Naloxone 1 each 02/22/24 13:00 Buprenorphine-Nalox 8-2 Mg Tab 1 Each Tab.Subl SL QID [facility] Enoxaparin Sodium 40 mg 02/22/24 11:15 Enoxaparin 40 Mg/0.4 Ml Syringe SQ DAILY [facility] Nitroglycerin 0.4 mg 02/22/24 08:12 Nitroglycerin Sl Tabs 0.4 Mg Tab SUBLINGUAL Q5M PRN Chest Pain Adderall ( 20 mg 02/22/24 14:00 Dextroamphetamine/ PO Amphetamine) 20 Mg BID@0400,1400 [facility] Tablet Intake and Output 02/21/24 02/22/24 02/22/24 22:59 06:59 14:59 Other: Weight 77.111 kg 02/22/24 04:36 02/22/24 04:36
[2024-02-22] MEDS: ENOXAPARIN 40 MG/0.4 ML SYRINGE SQ SCH (11:30)
[2024-02-22] MEDS: BUPRENORPHINE-NALOX 8-2 MG TAB 1 EACH TAB.SUBL SL SCH (15:20)
--- NOTE | 2024-02-22 16:45 | P.HPIM ---
History of Present Illness H&P Date: 02/22/24 Chief Complaint: Chest pain Very pleasant 48-year-old patient who follows with Dr. Olga Lidia Ribera. Chronic stable medical conditions include chronic pain in the back lower back from what is described with arthritis. For which she has been on [facility] before. She now t akes Suboxone for the same for last 5 years. She is also being treated for ADHD for last 1 year. Patient now presents with pain across the chest going to the neck and on the back on and off for about a week. Today she became a bit short of breath and decided to come in. Patient was lifting some boxes from the attic for [employer] just before that. Denies any swelling of the legs. Rather active. Patient's at the bedside in the ER. Patient seen in the ER. Review of systems: GEN.: Tired EYES: None HEENT: None NECK: None RESPIRATORY: None CARDIOVASCULAR: As above e GASTROINTESTINAL: None GENITOURINARY: None MUSCULOSKELETAL: None LYMPHATICS: None HEMATOLOGICAL: None PSYCHIATRY: None NEUROLOGICAL: Sleeps rather poorly. Does snore. According to often stops breathing. Social history: Works with [employer]. Average smoking about half a pack a day for 30 years stopped about 2 years ago. . Physical examination: VITAL SIGNS: 97.6, 66, 18, 105 x 71, 97% room air GENERAL: BMI 25.8, sitting up edge of the bed awake comfortable. EYES: Pupils equal. Conjunctiva reza l. HEENT: External appearance of nose and ears normal, oral cavity grossly normal. NECK: JVD not raised; masses not palpable. HEART: First and second heart sounds are normal; no edema. LUNGS: Respiratory rate normal; clear to auscultation. ABDOMEN: Soft, nontender, liver spleen not palpable, no masses palpable. PSYCH: Alert and oriented x3; mood and affect reza l. MUSCULOSKELETAL:No Clubbing/cyanosis;muscles-grossly intact NEUROLOGICAL: Cranial nerves grossly intact; no facial asymmetry, power and sensation grossly intact. LYMPHATICS: No lymph nodes palpable in the axilla and neck INVESTIGATIONS, reviewed in the clinical context: February 22, 2024: White count 5.9 hemoglobin 12.7 platelets 249 sodium 138 potassium 3.8 creatinine 0.76 blood glucose 68 Troponin I less than 0.012 x 3 EKG tracing personally reviewed by me-normal sinus rhythm Chest x-ray film personally reviewed by me-unremarkable Assessment plan: -Anterior chest wall pain. Rule out cardiac cause. Could be musculoskeletal. Patient was lifting boxes from the attic. Troponin negative. Cardiology consulted. -Chronic low back pain from arthritis in the lumbar area Patient is taking [facility] for the same before. Now on Suboxone for last 5 years -ADHD Adderall -Snoring with episodes of apnea described by the . Patient due to follow-up with Dr. Lares for workup early next year -Chronic insomnia from underlying snoring sleep apnea to be ruled out Care was discussed with patient at the bedside.. Per cardiology 2D echo and stress echocardiogram ordered. Past Medical History Past Medical History: No Reported History History of Any Multi-Drug Resistant Organisms: None Reported Past Surgical History: Ablation, Appendectomy, Tubal Ligation Additional Past Surgical History / Comment(s): uterine ablasion, liposuction, patient reports having ongoing pain for 3 weeks and is scheduled 10/01/23 for hysterectomy. Past Anesthesia/Blood Transfusion Reactions: No Reported Reaction Past Psychological History: No Psychological Hx Reported Smoking Status: Never smoker Past Alcohol Use History: Occasional Past Drug Use History: None Reported Medications and Allergies Home Medications Medication Instructions Recorded Confirmed Type Dextroamphetamine/Amphetamine 20 mg PO BID@0400,1400 08/04/23 02/22/24 History [Adderall] Buprenorphine-Nalox 8-2 mg Tab 1 tab PO QID 02/22/24 02/22/24 History [Suboxone 8-2 mg Tab] Allergies Allergy/AdvReac Type Severity Reaction Status Date / Time morphine AdvReac Nausea & Verified 02/22/24 09:31 Vomiting Physical Exam Vitals: Vital Signs Temp Pulse Resp BP Pulse Ox 02/22/24 04:27 97.6 F 66 18 105/71 97 Intake and Output 02/22/24 02/22/24 02/22/24 06:59 14:59 22:59 Other: Weight 77.111 kg Results CBC & Chem 7: 02/22/24 04:36 02/22/24 04:36 Labs: Abnormal Lab Results - Last 24 Hours (Table) 02/22/24 Range/Units 04:36 BUN 18 H (7-17) mg/dL Glucose 68 L (74-99) mg/dL
--- NOTE | 2024-02-22 17:28 | CA ---
Stress Echo Report Shawn Logan Age: 48 Gender: F : 1975 Exam Date: 02/22/2024 11:58 Exam Location: [facility] Ht (in): 68 Wt (lb): 170 Ordering Physician: Nandini Ayala Referring Physician: [id number] Rn Trauma: RAPHAEL Technologist Procedure CPT: Indication: LV function, CP ICD-9 Codes: Rhythm: Patient History: Chest pain and shortness of breath Cardiac Medications: Medications in past 24 hours: Contrast: Stress Results Protocol: Juan Carlos Total dose(mL): Exercise Duration (min:sec): 9:[address] Depression (mm): Angina Score: Hernandez Score: METS: 10.6 Resting HR: 62 Resting BP: 116 / 65 Peak HR: 160 Peak BP: 153 / 64 Max Predicted HR: 172 93 % Max Predicted HR Target HR: 146 Double Product: [id number] Stress Summary: BP Response: Reason for Termination: Reached target heart rate or work-load, Maximal effort/unable to continue Cardiac Symptoms: Some neck pain #5 and chest pressure that resolved at rest. ECG Analysis Resting ECG: Normal sinus rhythm normal axis normal intervals Stress ECG: Patient exercised on Juan Carlos protocol for 9 minutes and 49 seconds achieving 85% of predicted maximum heart rate without chest pain or diagnostic ST segment depression Arrhythmia: Rate PVCs and PACs noted Echo Analysis Resting Echo: Normal left ventricular size wall motion systolic function Peak Echo Analysis: Normal hyperdynamic response MEASUREMENTS (Male/Female) Normal Values CONCLUSIONS Good exercise tolerance Negative stress test by EKG criteria Negative stress echo Dr. Pradeep Banuelos MD (Electronically Signed) Final Date: 22 February 2024 17:27
[2024-02-22 19:57] VITALS: BP 113/62; PULSE 73; RESP 16; TEMP 97.7
--- NOTE | 2024-02-22 21:41 | P.DS ---
Providers Date of admission: 02/22/24 08:15 Expected date of discharge: 02/22/24 Attending physician: Juan Luis Bird Consults: 02/22/24 08:12 Consult Physician Urgent Consulting Provider: Jatinder Guaman Consult Reason/Comments: chest pain Do you want consulting provider notified?: Yes Primary care physician: Roz Ribera [facility] Course: Chief Complaint: Chest pain Very pleasant 48-year-old patient who follows with Dr. Olga Lidia Ribera. Chronic stable medical conditions include chronic pain in the back lower back from what is described with arthritis. For which she has been on [place] before. She now takes Suboxone for the same for last 5 years. She is also being treated for ADHD for last 1 year. Patient now presents with pain across the chest going to the neck and on the back on and off for about a week. Today she became a bit short of breath and decided to come in. Patient was lifting some boxes from the attic for [place] just before that. Denies any swelling of the legs. Rather active. Patient's at the bedside in the ER. Patient seen in the ER. Per cardiology Chin stress echocardiogram came back negative. Patient to follow- up cardiology outpatient. Also to follow-up with Dr. Lares for sleep apnea workup. Social history: Works with [employer]. Average smoking about half a pack a day for 30 years stopped about 2 years ago. . Physical examination: VITAL SIGNS: 97.6, 66, 18, 105 x 71, 97% room air GENERAL: BMI 25.8, sitting up edge of the bed awake comfortable. EYES: Pupils equal. Conjunctiva reza l. HEENT: External appearance of nose and ears normal, oral cavity grossly normal. NECK: JVD not raised; masses not palpable. HEART: First and second heart sounds are normal; no edema. LUNGS: Respiratory rate normal; clear to auscultation. ABDOMEN: Soft, nontender, liver spleen not palpable, no masses palpable. PSYCH: Alert and oriented x3; mood and affect reza l. MUSCULOSKELETAL:No Clubbing/cyanosis;muscles-grossly intact NEUROLOGICAL: Cranial nerves grossly intact; no facial asymmetry, power and sensation grossly intact. LYMPHATICS: No lymph nodes palpable in the axilla and neck INVESTIGATIONS, reviewed in the clinical context: February 22, 2024: White count 5.9 hemoglobin 12.7 platelets 249 sodium 138 potassium 3.8 creatinine 0.76 blood glucose 68 Troponin I less than 0.012 x 3 EKG tracing personally reviewed by me-normal sinus rhythm Chest x-ray film personally reviewed by me-unremarkable Assessment plan: -Anterior chest wall pain. Rule out cardiac cause. Could be musculoskeletal. Patient was lifting boxes from the attic.: Possibly musculoskeletal Troponin negative. Stress echocardiogram negative -Chronic low back pain from arthritis in the lumbar area Patient is taking [place] for the same before. Now on Suboxone for last 5 years -ADHD Adderall -Snoring with episodes of apnea described by the . Patient due to follow-up with Dr. Lares for workup early next year -Chronic insomnia from underlying snoring sleep apnea to be ruled out Disposition: Home Past Medical History Past Medical History: No Reported History History of Any Multi-Drug Resistant Organisms: None Reported Past Surgical History: Ablation, Appendectomy, Tubal Ligation Additional Past Surgical History / Comment(s): uterine ablasion, liposuction, patient reports having ongoing pain for 3 weeks and is scheduled 10/01/23 for hysterectomy. Past Anesthesia/Blood Transfusion Reactions: No Reported Reaction Past Psychological History: No Psychological Hx Reported Smoking Status: Never smoker Past Alcohol Use History: Occasional Past Drug Use History: None Reported Plan - Discharge Summary New Discharge Prescriptions: Continue Buprenorphine-Nalox 8-2 mg Tab [Suboxone 8-2 mg Tab] 1 tab PO QID Dextroamphetamine/Amphetamine [Adderall] 20 mg PO BID@0400,1400 Discharge Medication List Dextroamphetamine/Amphetamine [Adderall] 20 mg PO BID@0400,1400 08/04/23 [History] Buprenorphine-Nalox 8-2 mg Tab [Suboxone 8-2 mg Tab] 1 tab PO QID 02/22/24 [History] Follow up Appointment(s)/Referral(s): Roz Ribera MD [Primary Care Provider] - 1-2 days Pradeep Banuelos MD [STAFF PHYSICIAN] - 6 Weeks Lea Lares MD [STAFF PHYSICIAN] - 3 Weeks Discharge Disposition: HOME SELF-CARE
[2024-02-23] MEDS ORDERED: ASPIRIN 325 MG TAB PO SCH (09:00)
== END 2024-02-22 21:09 | disposition home or self-care (01) ==
LOC: EC 04:22 → 6NMEDSUR 08:15
PROVIDERS: ADMIT Hospitalist; ATTEND Hospitalist
DX: R07.89 Other chest pain (principal); M47.816 Spondylosis without myelopathy or radiculopathy, lumbar region; F90.9 Attention-deficit hyperactivity disorder, unspecified type; R06.02 Shortness of breath; R06.83 Snoring; R61 Generalized hyperhidrosis; G89.29 Other chronic pain; G47.00 Insomnia, unspecified; Z79.899 Other long term (current) drug therapy; Z87.891 Personal history of nicotine dependence; Z88.5 Allergy status to narcotic agent
CPT/HCPCS: 99285; 36415; 93005; 93351; 85379; 83880; 80053; 83735; 84484; 85025; 85610; 85730; 71046; G0378